=== PATIENT | male | born 1965 | race Caucasian/White ===

== ENCOUNTER 2023-03-13 15:13 | Inpatient (IN) | payer OTHER ==
[~2023-03-13] VITALS: Ht 175.3 cm; Wt 115.9 kg
[2023-03-13 16:51] VITALS: BP 167/73; PULSE 88; TEMP 97.8
[2023-03-13 16:59] VITALS: BP_SYST 167
--- NOTE | 2023-03-13 17:41 | NUR ---
RN ATTEMPTED BEDSIDE SWALLOW STUDY WITH PATIENT. PATIENT TOOK A SIP OF WATER, SWALLOW OBSERVED. PATIENT IMMEDIATLY STARTIN COUGHING. PATIENT WAS ABLE TO RECOVER SOMEWHAT QUICKLY. PATIENT DRANK WATER FROM A STRAW WITH NO ISSUES. PATIENT TOOK ONE BITE OF APPLESAUCE WITHOUT ISSUE. HOWEVER. PATIENT ATTEMPTED TO HOLD APPLESAUCE, THIS RN STATED SHE WOULD HOLD HIS APPLESAUCE SO H COULD USE HIS LFT HAND TO SCOOOP AND FEED HIMSELF (PATIENT THEN SAID " OH, I ONLY HAVE ONE ARM.) THEN DECLINED TO PROCEED.
--- NOTE | 2023-03-13 18:00 | NUR ---
CORAL TRANSFERED ROOMS. CORAL DOES NOT SEEM TO UNDERSTAND GRAVITY OF SITUATUION. FALL PRECAUTIONS IN PLACE. PATIENT HAS MULTIPLE FAMILY MEMBERS AT BEDSIDE.
[2023-03-13] MEDS ORDERED: LIPITOR 40MG TA40 MG PO (18:18)
[2023-03-13] MEDS ORDERED: CYMBALTA 60MG60 MG PO (19:22)
[2023-03-13] MEDS ORDERED: FLEXERIL 1010 MG/TAB PO (19:22)
[2023-03-13] MEDS ORDERED: NEURONTIN300 MG/CAP PO (19:23)
[2023-03-13] MEDS ORDERED: MOBIC15 MG PO (19:23)
[2023-03-13] MEDS ORDERED: ZESTRIL40 MG PO (19:23)
[2023-03-13] MEDS ORDERED: QSYMIA 7.5 MG-41 CER PO (19:24)
[2023-03-13] MEDS ORDERED: GLUCOPHAGE500 MG/TAB PO (19:24)
[2023-03-13] MEDS ORDERED: REMERON45 MG PO (19:24)
[2023-03-13] MEDS ORDERED: VIAGRA100 M1 PO (19:25)
[2023-03-13] MEDS ORDERED: MINIPRESS 1M1 MG/CAP PO (19:25)
[2023-03-13 20:00] VITALS: BP 164/92; PULSE 92; TEMP 98.3
[2023-03-13 21:00] VITALS: BP_SYST 164
--- NOTE | 2023-03-13 21:59 | NUR ---
UPON SHIFT ASSESSMENT, CARLOS SEEMED IN DENIAL ABOUT HIS CVA AND TALKED LITTLE OF HIS CONDITION. HE DENIED ANY PAIN, LUNG SOUNDS WERE CLEAR AND HE WAS A&O X 4. HE HAD +2 EDEMA IN HIS RIGHT FOOT AND A PILLOW WAS PLACED UNDERNEATH. LAST BP WAS 167/73 WHICH IS WITHIN RANGE OF DOCTOR'S ORDERS. CARLOS IS VOIDING USING A BEDSIDE URINAL. HE REMAINS NPO UNTIL AFTER SPEECH EVALUATION. BEDALARM IS ON AND CALL LIGHT WITHIN REACH.
[2023-03-14] VITALS (14 sets, daily range): BP systolic 103–177; BP diastolic 49–84; PULSE 72–89; TEMP 97.7–98.9
--- NOTE | 2023-03-14 | NUR ---
CARLOS c/o FEELING HOT AND SWEATY. VITALS AND ACCUCHECK WAS DONE AND WERE WNL. DEANDRE MCCLAIN, PLACED CALL TO HOSPITALIST FOR FAN AND ONE WAS PLACED BEDSIDE.
--- NOTE | 2023-03-14 00:50 | NUR ---
PATIENT'S BLOOD GLUCOSE REMAINS ABOVE 200 SINCE LAST DOSE OF SLIDING SCALE INSULIN GIVEN @ 2100. HOSPITALIST ELIZABETH LOWE NOTIFIED AND TORB FOR ADJUSTMENT TO SLIDING SCALE INSULIN WAS MADE. 6 UNITS NOVOLOG GIVEN @ 0100.
--- NOTE | 2023-03-14 05:53 | NUR ---
AT END OF SHIFT ASSESSMENT, CARLOS STILL SEEMED ANXIOUS AND WAS SLEEPING RESTLESSLY. HIS BP REMAINS IN DR. SHAH'S DESIRED RANGE AT 163/83. CURRENT STROKE SCORE IS 10 AND VITALS ARE WNL. HE STATED HE IS LOOKING FORWARD TO SPEECH EVAL; HE WANTS TO EAT AND DRINK. CALL LIGHT IS WITHIN REACH AND BED ALARM ON.
--- NOTE | 2023-03-14 06:26 | NUR ---
UP TO VISIT WITH PT AND GO OVER MRI SAFETY SHEET.
[2023-03-14 07:14] LABS: BASO # 0.1 K/mm3 (0.0-0.2); BASO % 0.7 % (0.0-2.0); EOS # 0.1 K/mm3 (0.0-0.7); GRAN # 7.2 K/mm3 (1.4-6.5); GRAN % 68.3 % (42.2-75.2); HEMOGLOBIN 17.3 g/dl (13.5-18.0); LYMPH # 2.4 K/mm3 (1.2-3.4); MEAN CELL VOLUME 89 fl (80.0-100.0); MEAN CORPUSCULAR HEMOGLOBIN 31 pg (27-31); MEAN CORPUSCULAR HGB CONC 35 g/dl (33.0-37.0); MEAN PLATELET VOLUME 10.2 fl (7.4-10.4); MONO # 0.7 K/mm3 (0.1-0.6); MONO % 6.2 % (1.7-9.3); PLATELET COUNT 218 K/mm3 (130-400); RED BLOOD COUNT 5.53 M/mm3 (4.20-5.60); REDCELL DISTRIBUTION WIDTH-CV 13.1 % (11.5-14.5)
[2023-03-14 07:29] LABS: CALCIUM 9.4 mg/dL (8.4-10.2); CHOLESTEROL RISK RATIO 7.3; POTASSIUM 3.9 mmol/L (3.5-4.5)
--- NOTE | 2023-03-14 10:42 | NUR ---
Patient is resting in bed watching television, alert and oriented, denies any discomfort or pain at this time. Assessment completed, SCDs adjusted. Stes no further needs at this time. Explained POC. Call light within reach. Bed alarm on.
[2023-03-14] MEDS ORDERED: ASPIRIN 81M81 MG/TA2 PO (14:20)
[2023-03-14] MEDS ORDERED: SYNJARDY XR 121 EACH PO (14:21)
[2023-03-14] MEDS ORDERED: SEROQUEL 1100 MG/TAB PO (14:22)
[2023-03-14] MEDS ORDERED: ZETIA 10MG TAB10 MG PO (14:22)
[2023-03-14] MEDS ORDERED: MELATIN 3 MG-11 TAB PO (14:23)
[2023-03-14] MEDS ORDERED: MULTI VITAMINS1 TAB PO (14:24)
[2023-03-14] MEDS ORDERED: GREEN TEA PO (14:25)
--- NOTE | 2023-03-14 15:27 | NUR ---
Claims Specialist met with patient to discuss discharge planning. Patient lives in [place] with his two children. Patient stated he has a 13 year old at home, then an adult son, Maged (ph#[phone]). Patient goes to the [facility] for primary care and medications. Patient does not normally use any DME and was independent with ADLS prior to his stroke. SW discussed PT/OT recommendations and advised the Hospitalist put in a screen for IPR. Patient is agreeable to this. SW discussed DPOA-HC with patient who is interested in making one, but requests SW follow up tomorrow. SW contacted patient's son, Maged to provide update. Maged confirmed he lives with patient and is agreeable to IPR screen. Discharge Plan: IPR Screen
--- NOTE | 2023-03-14 19:21 | NUR ---
Report given ti night RN.
--- NOTE | 2023-03-14 20:35 | NUR ---
UPON SHIFT ASSESSMENT, CARLOS DID NOT SEEM ANXIOUS LAST NIGHT'S SHIFT (03/13 @ 20:00). HE DISPLAYED SOME LIGHT HUMOR AND A BIT MORE KNOWLEDGE ABOUT HIS CURRENT SITUATION, "I'LL NEED PHYSICAL THERAPY". RIGHT SIDE REMAINS FLACID WITH NO CONTRACTURES, HOWEVER, THERE IS TOE WIGGLE IN HIS RIGHT FOOT. APPLIED ELIZABETH BANDAGE TO IV SITE TO PREVENT OCCLUSION. HE CURRENTLY HAS D5 1/2 NS @ 75mL/HR. BED ALARM ON AND CALL LIGHT WITHIN REACH.
--- NOTE | 2023-03-15 00:41 | NUR ---
CARLOS'S BLOOD PRESSURE AFTER REPEAT ATTEMPTS WAS 85/70. HOSPITALIST ELIZABETH LOWE VISITED PATIENT BEDSIDE IMMEDIATELY AND 250ML NS WAS ADMINISTERED BOLUS @ 500 ML/HR.
[2023-03-15 01:17] VITALS: BP_SYST 103
--- NOTE | 2023-03-15 01:19 | NUR ---
CARLOS IS EXPERIENCING MUSCLE SPASMS IN RT FOOT AND CANNOT SLEEP. HOSPITALIST ELIZABETH LOWE NOTIFIED AND GAVE TORB FOR TYLENOL, ROBAXIN AND MELATONIN.
--- NOTE | 2023-03-15 01:19 | NUR ---
PER CARLOS'S REQUEST REMOVED SCDs D/T FOOT SPASMS.
--- NOTE | 2023-03-15 01:30 | NUR ---
POOLTERI'S BP HAS IMPROVED TO 121/99 FOLLOWING BOLUS OF NS.
[2023-03-15 03:04] VITALS: BP 113/50; PULSE 89; TEMP 97.7
[2023-03-15 05:19] VITALS: BP_SYST 113
--- NOTE | 2023-03-15 06:08 | NUR ---
TOWARDS END OF SHIFT, CARLOS WAS ABLE TO SLEEP FOR BRIEF PERIODS. HE STILL DISPLAYS SOME ANXIETY. LAST VSS @ 03:04 WERE- BP 113/50, TEMP 97.7, 16 RR, PULSE 89. TELE IS NS.
[2023-03-15 06:38] VITALS: BP 107/68
[2023-03-15 07:49] VITALS: BP 130/70; PULSE 90; TEMP 98.3
[2023-03-15] MEDS ORDERED: PLAVIX 75MG TAB75 MG PO (08:50)
[2023-03-15] MEDS ORDERED: LIPITOR 80MG80 MG PO (08:50)
[2023-03-15] MEDS ORDERED: LEVEMIR100 U/ML SQ (08:53)
[2023-03-15] MEDS ORDERED: INSULIN AS100 UNIT/2 SQ (08:53)
--- NOTE | 2023-03-15 10:14 | NUR ---
Patient alert and oriented x4. Shift assessment complete, no new variances noted. Patient continues to be unable to rock picker right side extremities, reports slight feeling when touched. Patient reports numbness to right side. Skin is intact. Medications tolerated well. Patient reports low appetite and did not want his breakfast tray, supplement shake ordered. Patient feels overwhelmed regarding current health situation. Currently in bed with call light in reach, all needs met at this time.
[2023-03-15 10:53] VITALS: BP 120/68; PULSE 86; TEMP 98.2
--- NOTE | 2023-03-15 12:02 | NUR ---
Initial visit: Executive Vp stopped by room on rounds. Pt was resting and content. Pt has no needs right now. Executive Vp will follow up as needed.
--- NOTE | 2023-03-15 12:54 | NUR ---
Report called to JOHNY Wright in IPR. Patient voices no concerns at time of transfer.
--- NOTE | 2023-03-15 15:42 | NUR ---
Policy Issue Clerk was notified by IPR Director that they received authorization from the [facility] and can accept today. SW contacted patient's son, Maged to provide update. Maged said he and his sibling are doing okay at home and that he had no concerns or questions at this time.
== END 2023-03-15 12:45 | DRG 65 ==
LOC: MEDICAL 15:13
PROVIDERS: Physician Assistant; ADMIT Internal Medicine
DX: I63.9 Cerebral infarction, unspecified (principal); G81.91 Hemiplegia, unspecified affecting right dominant side; R47.81 Slurred speech; I10 Essential (primary) hypertension; E78.5 Hyperlipidemia, unspecified; Z79.4 Long term (current) use of insulin; N52.9 Male erectile dysfunction, unspecified; E66.9 Obesity, unspecified; F32.A Depression, unspecified; E11.40 Type 2 diabetes mellitus with diabetic neuropathy, unspecified; Z68.37 Body mass index [BMI] 37.0-37.9, adult
CPT/HCPCS: A9575; C9113; G0378; G0379; J1650; J1815; J7050; Q3014

== ENCOUNTER 2023-03-15 11:03 | Inpatient (IN) | payer OTHER ==
[~2023-03-15] VITALS: Ht 175.3 cm; Wt 103.6 kg
[~2023-03-15 11:03] MED LIST: ASPIRIN 81M81 MG/TA2 PO; CYMBALTA 60MG60 MG PO; FLEXERIL 1010 MG/TAB PO; GLUCOPHAGE500 MG/TAB PO; GREEN TEA PO; INSULIN AS100 UNIT/2 SQ; LEVEMIR100 U/ML SQ; LIPITOR 40MG TA40 MG PO; LIPITOR 80MG80 MG PO; MELATIN 3 MG-11 TAB PO; MINIPRESS 1M1 MG/CAP PO; MOBIC15 MG PO; MULTI VITAMINS1 TAB PO; NEURONTIN300 MG/CAP PO; PLAVIX 75MG TAB75 MG PO; QSYMIA 7.5 MG-41 CER PO; REMERON45 MG PO; SEROQUEL 1100 MG/TAB PO; SYNJARDY XR 121 EACH PO; VIAGRA100 M1 PO; ZESTRIL40 MG PO; ZETIA 10MG TAB10 MG PO
[2023-03-15 17:16] VITALS: BP 117/70; PULSE 84; TEMP 98
[2023-03-15 17:20] VITALS: BP_SYST 117
[2023-03-15 18:00] VITALS: BP 117/70; PULSE 84; TEMP 98
--- NOTE | 2023-03-15 18:13 | NUR ---
PATIENT BROUGHT TO FLOOR. PATIENT C/O DIARRHEA. PATIENT HAS HAD TWO LARGE, LOOSE STOOLS. THIS NURSE PLACED COLLECTION DEVICES IN BATHROOM TO OBTAIN GI PANEL WITH DR. CASTRO PERMISSION. ASSESSMENT PERFORMED. MEDS ADMINISTERED NEEDED. PATIENT DENIES ANY FURTHER NEEDS. CALL LIGHT IN REACH, BED ALARM ON.
--- NOTE | 2023-03-15 20:55 | NUR ---
Patient assessed at this time, see shift assessment, transfers x2 with gait belt to BSC, denies pain or discomfort, on room air, INT to left AC infusing well, denies further needs, call light and personal items within reach, fall precautions in place, bed alarm on.
--- NOTE | 2023-03-16 02:31 | NUR ---
Patient refused to wear CPAP provided by the RT, oxygen saturation 93%, will continue to monitor.
--- NOTE | 2023-03-16 04:51 | NUR ---
Patient resting in bed, looks comfortable, respirations even and unlabored.
[2023-03-16 05:53] VITALS: BP 106/54; PULSE 83; TEMP 97.4
--- NOTE | 2023-03-16 05:58 | NUR ---
Bladder scanned patient and resulted to 190ml.
[2023-03-16 08:51] LABS: CLOSTRIDIUM DIFF A/B POS
[2023-03-16 09:00] VITALS: BP_SYST 106
[2023-03-16 13:00] VITALS: BP_SYST 106
--- NOTE | 2023-03-16 13:45 | NUR ---
Regional Liaison rounds: Regional Liaison visit attempted. Patient was not in room.
[2023-03-16 17:00] VITALS: BP_SYST 136
[2023-03-16 17:21] VITALS: BP 136/67; PULSE 95; TEMP 98.7
--- NOTE | 2023-03-16 20:46 | NUR ---
Patient assessed at this time, see shift assessment, A/Ox4, denies pain at this time, denies further needs, call light and personal items within reach, will continue to monitor.
--- NOTE | 2023-03-17 01:15 | NUR ---
Patient still refused to wear CPAP provided by the RT, oxygen saturation is 92%.
[2023-03-17 05:25] VITALS: BP 106/59; PULSE 91; TEMP 98.4
[2023-03-17 09:00] VITALS: BP_SYST 106
--- NOTE | 2023-03-17 10:00 | NUR ---
Patient is lying in bed watching television, breakfast tray at 50%. Alert and oriented x 4, denies pain or discomfort at this time. Assessment completed, meds provided. No further needs at this time. Call light within reach.
--- NOTE | 2023-03-17 13:05 | NUR ---
SW met with pt. No concerns at this time since last visit with CM team. Will contiune to follow and await recommendations.
[2023-03-17 13:32] VITALS: BP_SYST 106
[2023-03-17 17:00] VITALS: BP_SYST 138
[2023-03-17 17:46] VITALS: BP 138/75; PULSE 92; TEMP 98.7
--- NOTE | 2023-03-17 18:33 | NUR ---
Patient stayed in bed and alternated with wheelchair in the day. No reports of pain or discomfort. Using the commode. Report will be given to night RN.
--- NOTE | 2023-03-17 20:30 | NUR ---
PT A&O X4 LAYING IN BED WATCHING TV. VSS & DENYING PAIN. FALL PRECAUTIONS IN PLACE & CALL LIGHT IN REACH. PT DENYING FURTHER NEEDS AT THIS TIME.
[2023-03-18 06:03] VITALS: BP 129/58; PULSE 80; TEMP 97.9
--- NOTE | 2023-03-18 06:29 | NUR ---
PT SLEPT IN BED THROUGHOUT THE SHIFT. NO C/O PAIN. FALL PRECAUTIONS IN PLACE & CALL LIGHT IN REACH. DENYING FURTHER NEEDS AT THIS TIME.
[2023-03-18 07:00] VITALS: BP_SYST 129
--- NOTE | 2023-03-18 09:42 | NUR ---
Initial visit attempt; Patient in isolation. Nurse took Personnel Recruiter's card to him offering Spiritual Care. Personnel Recruiter can offer prayer and/or just listen from the doorway and pray.
--- NOTE | 2023-03-18 10:24 | NUR ---
PT JUST WAKING I ENTERED ROOM FOR MED PASS AND ASSESSMENT.ALERT AND ORIENTED. WHEN ASKED HOW HE WAS FEELING, MILD DYSPHASIA NOTED.RESPONED HE WAS "FINE" FLAT AFFECT, PLAN TO CONSULT PASTORAL SERVICES. VITAL SIGNS STABLE. DENIES PAIN AT THIS TIME. CALL LIGHT WITHIN REACH. BED ALARM SET.
--- NOTE | 2023-03-18 16:50 | NUR ---
Web Coordinator met with Patient to discuss progress towards treatment goals and discuss discharge planning. Patient reports to be making progress towards treament goals though reports fatigue from therapies today. SW discussed the potential for a fmaily meeting this week. Patient states that his adult son is the best point of contact to schedule and coordinate family meeting.
[2023-03-18 17:36] VITALS: BP 141/76; PULSE 101; TEMP 98
--- NOTE | 2023-03-18 19:00 | NUR ---
RECEIVED CHANGE OF SHIFT REPORT FROM DAY SHIFT RN. RESTING IN BED, WATCHING TV. EXIT ALARM ON, CALL LIGHT IN REACH.
[2023-03-19 05:58] VITALS: BP 145/53; PULSE 87; TEMP 97.8
[2023-03-19 07:06] VITALS: BP_SYST 145
--- NOTE | 2023-03-19 07:07 | NUR ---
Shift report received from maintenance technician 2nd shift RN. Pt sleeping supine in bed. Resps are even & unlabored. No events reported overnight. Call light in reach. Bed alarm is on.
--- NOTE | 2023-03-19 07:57 | NUR ---
Pt sitting up in bed eating breakfast independently. Pain/discomfort denied. Other needs denied. Call light in reach. Bed alarm is on.
--- NOTE | 2023-03-19 10:34 | NUR ---
Pt is off the unit for Group Therapy.
--- NOTE | 2023-03-19 10:59 | NUR ---
Has lack of transportation kept you from medical appts, meetings, work, or from getting things needed for daily living? NO How often do you feel lonely or isolated from those around you? OFTEN Over the past 5 days, how much of the time has pain made it hard for you to sleep? NO PAIN Over the past 5 days, how often have you limited your participation in therapy due to pain? NO PAIN Over the past 5 days, how often have you limited your day-to-day activities because of pain? NO PAIN Have you had 2 or more falls in the past year or any fall with an injury? NO Did you have major surgery during the 100 days prior to admission? NO
--- NOTE | 2023-03-19 12:24 | NUR ---
Pt sitting up in the wheelchair eating lunch independently after set up help. Pt denies pain or discomfort. Denies any needs. Remains on contact iso. Call light in his reach. Chair alarm is on.
--- NOTE | 2023-03-19 13:03 | NUR ---
Admission QIM scores were reviewed by the team. Code of 5 chosen for eating was determined by team discussion to be the most usual performance before interventions for this patient during the assessment period.--Dolly De Souza, PD
--- NOTE | 2023-03-19 13:07 | NUR ---
Pt transferred to [facility] using 2 person assist at his request to have a BM. Pt unable to have a BM at this time. Pt declined wanting to lay down after toileting attempt. Pt transferred back to the wheelchair. ST in the room for therapy. Pt has his call light in reach.
[2023-03-19 17:29] VITALS: BP 114/55; PULSE 88; TEMP 97.7
--- NOTE | 2023-03-19 18:12 | NUR ---
Pt lying supine in bed watching tv. He ate approx 100% of his dinner independently after set up help. He denies pain/discomfort. Denies other needs. Call light in reach. Bed alarm is on.
--- NOTE | 2023-03-19 19:00 | NUR ---
RECEIVED CHANGE OF SHIFT REPORT FROM DAY SHIFT RN. PATIENT RESTING IN BED, WATCHING TV, EXIT ALARM ON, CALL LIGHT IN REACH. DENIES ANY NEEDS AT TIME OF REPORT.
[2023-03-20 05:44] VITALS: BP 96/46; PULSE 69; TEMP 97.6
--- NOTE | 2023-03-20 06:53 | NUR ---
CHANGE OF SHIFT REPORT GIVEN TO DAY SHIFT RNs, ALANIS. PATIENT SLEPT THROUGH THE NIGHT WITH NO REPORTED PROBLEMS. USED URINAL PRIOR TO SLEEP ONLY. DENIES ANY C/O OR NEEDS AT TIME OF REPORT THIS MORNING. DID OBSERVED PATIENT WITH APNEIC PERIOD WHEN VP DIRECTOR OF CREATIVE STRATEGY VITALS WERE TAKEN WITH NO REPORTED C/O SOA/CHEST PAIN OR ANY COMPLAINTS WITH MORNING. OBSERVED OXYGEN SAT ON ROOM AFTER APNEIC EPISODE INITIALLY AT 88% THAT INCREASED WITH NONLABORED/EVEN BREATHING TO 92% AND WITH NO FURTHER EPISODES OF APNEA OBSERVED THEREAFTER.
[2023-03-20 07:00] VITALS: BP_SYST 122
[2023-03-20 08:10] VITALS: BP 122/48
--- NOTE | 2023-03-20 09:01 | NUR ---
Shift report received from panel flow machine operator RN. No events reported overnight. Call light in reach. Bed alarm is on.
--- NOTE | 2023-03-20 09:27 | NUR ---
PT ALERT AND ORIENTED. RESTING IN BED W/O COMPLAINTS OF PAIN. VOIDS IN URINAL INDEPENDANTLY. ABLE TO EAT W/O ASSISTANCE. HEAD TO TOE ASSESSMENT COMPLETE. CALL LIGHT WITHIN REACH. BED ALARM SET. SPOKE TO DR YASMINE SWEETOUT POSSIBLE D/C OF CONTACT ISOLATION FOR CDIFF. PT HAS HAD TWO FROMED STOOLS IN THE LAST TWO DAYS.
--- NOTE | 2023-03-20 16:07 | NUR ---
Assembly Press Operator met with Patient at bedside to review team confreence notes. SW reviewed progress towards treatment goals, barriers and interventions, and discharge planning/re-eval date. Patient acknowledges and presents with no concerns.
[2023-03-20 17:11] VITALS: BP 119/56; PULSE 85; TEMP 98.2
[2023-03-21 05:07] VITALS: BP 95/51; PULSE 80; TEMP 97.6
[2023-03-21 07:00] VITALS: BP_SYST 95
--- NOTE | 2023-03-21 07:00 | NUR ---
PT SLEEPING IN BED. BEDALARM ACTIVE AND CALL LIGHT WITHIN REACH.
--- NOTE | 2023-03-21 07:21 | NUR ---
CHANGE OF SHIFT REPORT GIVEN TO DAY SHIFT DANI. JOHNY
--- NOTE | 2023-03-21 09:35 | NUR ---
PT DOWN TO THERAPY GYM
[2023-03-21 17:03] VITALS: BP 94/69; PULSE 85; TEMP 98.1
[2023-03-21 19:00] VITALS: BP_SYST 94
--- NOTE | 2023-03-21 19:16 | NUR ---
REPORT RECIEVED FROM SOFÍA MCCLAIN. PT RESTING IN BED WATCHING TV. PT DENIES PAIN OR DISCOMFORT. CALL LIGHT IN PLACE. ALL NEEDS MET AT THIS TIME.
--- NOTE | 2023-03-21 22:20 | NUR ---
SHIFT ASSESSMENT COMPLETE, SEE DOCUMENTATION. PT SITTING ON THE PHONE TALKING TO HER . NO C/O PAIN OR DISCOMFORT. CALL LIGHT IN PLACE. ALL NEEDS MET AT THIS TIME.
[2023-03-22 06:34] VITALS: BP 138/71; PULSE 88; TEMP 97.8
[2023-03-22 07:00] VITALS: BP_SYST 138
--- NOTE | 2023-03-22 07:30 | NUR ---
PATIENT AWAKE AND ALERT, RESTING IN BED. PATIENTS CALL LIGHT WIHTIN REACH. FALL PRECAUTIONS IN PLCAE. PATIENT REFUSING TO GET DRESSED AT THIS TIME.
--- NOTE | 2023-03-22 13:21 | NUR ---
Provided emotional support to pt throughout the week. His mood continues to flucuates d/t having adjustment issues to his stroke & deficits. Have allowed pt to talk about his experience. He has been able to verbalize some progress. Will continue to provide support during his stay.
--- NOTE | 2023-03-22 15:44 | NUR ---
Temperature Regulator Pyrometer and SW student met with Patient to review progress towards treatment goals and review potential discharge services. Patient reports to be making progress towards treatment goals despite feeling fatigue after therapies. SW reviewed potential Home Health PT or OPPT when discharged. Holland states that he may progress with Speech Therapy more if he were to work with Speech prior to working with PT/OT. Patient presents with no concerns at this time.
[2023-03-22 17:17] VITALS: BP 130/51; PULSE 97; TEMP 98
[2023-03-22 18:30] VITALS: BP_SYST 130
--- NOTE | 2023-03-22 19:49 | NUR ---
SHIFT ASSESSMENT COMPLETE. VVS. A&OX4. NIGHT MEDS GIVEN ORDERED. PATIENT RESTING IN BED WATCHING TV. PATIENT HAS NO REQUEST OR COMPLAINTS AT THIS TIME. FALL PRECAUTIONS IN PLACE. CALL LIGHT IN REACH.
[2023-03-23 06:31] VITALS: BP 94/49; PULSE 73; TEMP 97.7
[2023-03-23 07:03] VITALS: BP_SYST 94
--- NOTE | 2023-03-23 10:00 | NUR ---
PT ALERT AND ORIENTED. BLOOD PRESSURE OVERNIGHT WAS 94/49. UPON RECHEKING THIS AM WAS FOUND TO BE 119/51.ALL OTHER VITAL SIGNS WITHIN NORMAL LIMITS. MORNING MEDS GIVEN, SEE EMAR. HEAD TO TOE ASSESSMENT COMPLETE. CALL LIGHT WITHIN REACH. BED ALARM SET.
--- NOTE | 2023-03-23 11:50 | NUR ---
Yard Labor Supervisor rounds: Yard Labor Supervisor visit attempted; Patient sleeping.
[2023-03-23 17:28] VITALS: BP 100/54; PULSE 79; TEMP 97.9
--- NOTE | 2023-03-23 21:32 | NUR ---
Patient assessed at this time, see shift assessment, denies pain or discomfort, A/Ox4, on room air, takes pills fine, denies SOA, plan of care discussed for this shift to include meds/pain control/ calling for questions or concerns, will continue to monitor.
--- NOTE | 2023-03-24 00:42 | NUR ---
Patient awakened for scheduled vanco PO, denies pain or discomfort at this time.
[2023-03-24 06:06] VITALS: BP 95/57; PULSE 84; TEMP 97.6
[2023-03-24 06:11] VITALS: BP 102/49
--- NOTE | 2023-03-24 06:59 | NUR ---
TEXTILE MACHINE MECHANIC NURSE REPORTED PT REFUSED CPAP OVERNIGHT.WILL MONITOR O2 FOR SHIFT TODAY.
[2023-03-24 07:02] VITALS: BP_SYST 102
--- NOTE | 2023-03-24 12:00 | NUR ---
PT ALERT AND ORIENTED. SLEPT IN UNTIL 11AM TODAY. VITAL SIGNS STABLE. HEAD TO TOE ASSESSMENT COMPLETE. GOAL TO GET PT UP IN CHAIR FOR MEALS IF PT CAN TOLERATE. PT MOOD THE PAST TWO SHIFTS SINCE JOSE BEEN HERE HAS BEEN FLAT. I REMEMBER CARING FOR THIS PT LAST WEEK AND THIS MOOD IS DIFFERENT FROM BASELINE. WHEN I ASKED HIM HOW HE WAS FEELING HE SAYS "OK". PASTORAL SERVICES CONSULTED.
[2023-03-24 17:58] VITALS: BP 93/46; PULSE 86; TEMP 97.9
[2023-03-24 18:16] VITALS: BP 94/46
--- NOTE | 2023-03-24 19:00 | NUR ---
RECEIVED CHANGE OF SHIFT REPORT FROM DAY SHIFT RN.
[2023-03-24 21:05] VITALS: BP 100/48
[2023-03-25 05:17] VITALS: BP 100/60; PULSE 67; TEMP 97.7
--- NOTE | 2023-03-25 05:33 | NUR ---
DENIES DIZZINESS/FEELING WEAK AT THIS TIME. DENIES ANY NEEDS OR CONCERNS. EXIT ALARM ON WHILE RESTING IN BED. CALL LIGHT IN REACH.
--- NOTE | 2023-03-25 06:44 | NUR ---
CHANGE OF SHIFT REPORT GIVEN TO DAY SHIFT RNSUKUMAR.
[2023-03-25 07:00] VITALS: BP_SYST 100
--- NOTE | 2023-03-25 12:16 | NUR ---
Initial visit: Test Designer stopped by room by request. Pt was just getting done with rehab. Pt has no needs at this time. Test Designer will follow up as needed.
--- NOTE | 2023-03-25 16:57 | NUR ---
die try out worker briefly met with patient to check in. Patient expressed he was doing okay, he was tired. Patient felt PT and OT were going well but they were tiring. die try out worker updated patient's board with her direct phone number in case patient has questions during his stay. die try out worker expressed she would revisit with him on Saturday after the team meeting. Discharge plan: Home
[2023-03-25 17:55] VITALS: BP 120/75; PULSE 77; TEMP 97.7
--- NOTE | 2023-03-25 19:01 | NUR ---
RECEIVED CHANGE OF SHIFT REPORT FROM DAY SHIFT RN.
--- NOTE | 2023-03-25 23:26 | NUR ---
PATIENT COMPLAINING OF L SHOULDER PAIN AND BEING UNABLE TO FALL ASLEEP. SEE MAR FOR TYLENOL AND MELATONIN GIVEN WITH SCHEDULED VANCOMYCIN PILL. PLACED WARM BLANKET FOR COMFORT TO L SHOULDER AREA OF DISCOMFORT. EXIT ALARM ON, CALL LIGHT IN REACH.
[2023-03-26 05:27] VITALS: BP 86/46; PULSE 77; TEMP 97.9
--- NOTE | 2023-03-26 06:08 | NUR ---
OBSERVED BP AT 86/46 MANUALLY, INFORMED ONCALL HOSP PROVIDER OF CURRENT VS&BP. PROVIDER ENTERED ORDER FOR ONE TIME ORDER FOR 500 ML IV BOLUS OF NS AFTER INSERTING IV SITE FOR SALINE LOCK. PATIENT INFORMED OF D.O. AND TO INCREASE FLUID INTAKE, STATING HE WOULD DRINK GATORADE BETTER THAN WATER. OBSERVED PATIENT VERY SLEEPY STATING THAT HE WAS STILL VERY TIRED. DENIES CHEST PAIN/SOA/DIZZINESS AT THIS TIME. OBSERVED LIP COLORING PALE PINK, WITH RESPIRATIONS EVEN AND NONLABORED.
[2023-03-26 07:05] LABS: HEMATOCRIT 43.1 % (42.0-52.0); HEMOGLOBIN 14.9 g/dl (13.5-18.0); MEAN CELL VOLUME 91 fl (80.0-100.0); MEAN CORPUSCULAR HEMOGLOBIN 32 pg (27-31); MEAN CORPUSCULAR HGB CONC 35 g/dl (33.0-37.0); MEAN PLATELET VOLUME 10.2 fl (7.4-10.4); PLATELET COUNT 191 K/mm3 (130-400); RED BLOOD COUNT 4.73 M/mm3 (4.20-5.60); REDCELL DISTRIBUTION WIDTH-CV 12.5 % (11.5-14.5)
[2023-03-26 07:09] VITALS: BP 90/50
--- NOTE | 2023-03-26 07:12 | NUR ---
CHANGE OF SHIFT REPORT GIVEN TO DAY SHIFT JANEEN MCCLAIN.
[2023-03-26 07:33] VITALS: BP_SYST 90
[2023-03-26 07:33] LABS: CALCIUM 9.2 mg/dL (8.4-10.2); CREATININE, serum 4.18 mg/dL (0.72-1.25); POTASSIUM 5.1 mmol/L (3.5-4.5)
--- NOTE | 2023-03-26 07:50 | NUR ---
pt asleep upon entry, easily awaken. pt a&ox4 and vss- blood pressure 90/50 after 500ml bolus. pt reports feeling tired from not sleeping last night but otherwise asymptomatic. notified NAVEEN Anthony of blood pressure and holding lisinopril. meds given without difficulty. right side flaccid, able to assist self in eating breakfast. fall precautions in place. pt denies needs at this time. call light in reach.
--- NOTE | 2023-03-26 14:05 | NUR ---
recieved call from PCT that IPR director Kathleen is requesting vital signs to be taken on patient because he is "acting weird." manual BP 80/52 and O2 sat 89 on room air, other VS are stable. pt a&ox4. pt also reporting feeling short of breath and some chest discomfort. Dr Dia in to examine pt and EKG and CXR ordered. 500ml fluid bolus started. pt assisted back to bed to lay flat and help bring blood pressure up. pt placed on 1L nasal cannula.
[2023-03-26 17:29] VITALS: BP 90/64; PULSE 65; TEMP 97.9
--- NOTE | 2023-03-26 19:00 | NUR ---
RECEIVED CHANGE OF SHIFT REPORT FROM DAY SHIFT RN. PATIENT UP IN CHAIR AT TIME OF REPORT, EXIT ALARM ON, CALL LIGHT IN REACH. DENIES ANY NEEDS AT TIME OF REPORT.
[2023-03-26 22:06] VITALS: BP 118/64
[2023-03-27 05:46] VITALS: BP 98/48; PULSE 77; TEMP 97.4
--- NOTE | 2023-03-27 07:13 | NUR ---
CHANGE OF SHIFT REPORT GIVEN TO DAY SHIFT RNs, ALANIS.
--- NOTE | 2023-03-27 07:23 | NUR ---
NIGHT NURSE REPORTS THAT PT BG WAS WNL. ONGOING HYPOTENSION, HOLD ON LISINOPRIL WILL ASK ABOUT AMLODIPINE WHEN HOSPITALIST ROUNDS. #20 IN , CDI.PT SLEPT THROUGH THE NIGHT PER REPORT FROM COMMUNICATIONS OFFICER RN.
[2023-03-27 07:29] VITALS: BP_SYST 98
[2023-03-27 07:37] LABS: CALCIUM 8.6 mg/dL (8.4-10.2); CREATININE, serum 2.07 mg/dL (0.72-1.25); POTASSIUM 5.4 mmol/L (3.5-4.5)
--- NOTE | 2023-03-27 10:54 | NUR ---
PT ALERT AND ORIENTED. VITAL SIGNS STABLE THIS AM. FLUIDS RUNNING IN #20 LH, CLEAN, DRY, INTACT. NO C/O PAIN AT THIS TIME. REGULAR UNLABORED RESPIRATIONS THIS MORNING. HEAD T0 TOE ASSESSMENT COMPLETE.
--- NOTE | 2023-03-27 16:52 | NUR ---
pt blood sugar was 77 at last check. Gave saltines and orange juice. Will re check in 1 hour.
--- NOTE | 2023-03-27 16:55 | NUR ---
opinion polls survey worker met with IPR team to discuss patient's progress. Patient still required assistance and would benefit from continued IPR services. opinion polls survey worker met with patient to review IPR team meeting information. Patient understood he still needed to improve and understood he would continue with IPR services. opinion polls survey worker left a copy of the IPR notes for patient to review when he wanted. Social work will continue to follow.
[2023-03-27 17:39] VITALS: BP 140/60; PULSE 80; TEMP 97.7
[2023-03-27 19:00] VITALS: BP_SYST 132
[2023-03-27 20:00] VITALS: BP 116/64
[2023-03-27 23:07] VITALS: BP 132/78
--- NOTE | 2023-03-28 02:06 | NUR ---
UPON SHIFT ASSESSMENT CARLOS C/O RT FOOT SPASM AND THIS NURSE OBSERVED SPASM WELL. CALL WAS PLACED TO HOSPITALIST FARHANA FOR REQUIP WAS PLACED AND ADMINISTERED. INITIALLY CATAPRES WAS HELD D/T A 116 SYSTOLIC. A LATER BP CHECK SHOWED A TRENDING ELEVATED BP SO CATAPRES WAS GIVEN. CURRENTLY SARAH VSS ARE WNL, CALL LIGHT WITHIN REACH, BED ALARM ON.
[2023-03-28 05:44] VITALS: BP 145/60; PULSE 77; TEMP 97.7
--- NOTE | 2023-03-28 05:55 | NUR ---
CARLOS EXPERIENCED AN EPISODE OF FOOT SPASMS DURING THE NIGHT AND MEDICATION WAS GIVEN. THERE ARE NO STATUS CHANGES AND HE SLEPT MOST OF THE NIGHT. HIS VSS ARE WNL, CALL LIGHT WITHIN REACH AND BED ALARM ON.
[2023-03-28 07:36] LABS: CALCIUM 8.7 mg/dL (8.4-10.2); CREATININE, serum 1.36 mg/dL (0.72-1.25); POTASSIUM 4.5 mmol/L (3.5-4.5)
--- NOTE | 2023-03-28 09:16 | NUR ---
PER COOLING PAN TENDER REPORT PT SLEPT WELL OVERNIGHT WITH NO C/O PAIN.
[2023-03-28 09:17] VITALS: BP_SYST 145
--- NOTE | 2023-03-28 12:40 | NUR ---
UPON HELPING WITH TRANSFER FROM BSC I NOTICED HIS BOTTOM WAS REDDENED, BLANCHABLE. BARRIER CREAM APPLIED.
--- NOTE | 2023-03-28 15:31 | NUR ---
PT PERIFERAL IV LINE INFILTRATED. IV DISCONTINUED IN THE LH.
--- NOTE | 2023-03-28 16:19 | NUR ---
Pt sitting up in the recliner watching tv & visiting w/ his family. Blood sugar 65 mg/dL w/o sx of hypoglycemia. Snack & Ensure given. Hospitalist notified. Will continue to monitor.
[2023-03-28 18:00] VITALS: BP 130/70; PULSE 76; TEMP 97.8
[2023-03-28 18:45] VITALS: BP_SYST 130
--- NOTE | 2023-03-28 20:00 | NUR ---
PT ASSISTED TO BSC WITH 2 ASSIST/GAIT BELT. FLACCID TO RT SIDE. IS ALERT AND ORIENTED. HAS IVF TO LT HAND, INFUSING WITHOUT PROBLEM. VOIDS AND ASSISTED BACK TO BED. DENIES PAIN.
[2023-03-29 05:55] VITALS: BP 140/80
[2023-03-29 06:00] VITALS: PULSE 71; TEMP 97.5
--- NOTE | 2023-03-29 06:00 | NUR ---
PT VOIDS PER URINAL WITHOUT PROBLEM. IVF CONTINUE. B/P IMPROVED.
[2023-03-29 07:14] VITALS: BP_SYST 140
--- NOTE | 2023-03-29 14:50 | NUR ---
Gas Regulator Repairer Helper met with patient to check in before the weekend. Patient states therapy is going well but can be exhausting. Patient reports his children are doing okay at home and will be here this afternoon to visit him.
[2023-03-29 17:02] VITALS: BP 136/62; PULSE 67; TEMP 98
[2023-03-29 19:00] VITALS: BP_SYST 136
--- NOTE | 2023-03-29 21:30 | NUR ---
PT IN BED. HS MEDS GIVEN. PT HAS IVF TO LT HAND INFUSING WITHOUT PROBLEM. PT REMAINS FLACCID TO RT SIDE. HAS FLAT AFFECT AND GIVES SHORT ANSWERS TO QUESTIONS. VOIDING PER URINAL, EMPTIED 300CC OF YELLOW URINE AT THIS TIME. BED ALARM ON FOR SAFETY.
[2023-03-30 05:09] VITALS: BP 134/62; PULSE 69; TEMP 98.1
[2023-03-30 06:51] LABS: CALCIUM 9.2 mg/dL (8.4-10.2); CREATININE, serum 1.17 mg/dL (0.72-1.25)
[2023-03-30 08:15] VITALS: BP_SYST 134
--- NOTE | 2023-03-30 08:15 | NUR ---
PT AWAKE IN BED UPON ENTERING. FLUIDS RUNNING PER ORDER AND PT DENIES PAIN AT THIS TIME. MORNING MEDS SWALLOWED WITHOUT DIFFICULTY. RIGHT SIDED WEAKNESS NOTED AND PT DENIES NEEDS AT THIS TIME. BED IN LOWEST POSITION, CALL LIGHT IN REACH, BED ALARM ON
--- NOTE | 2023-03-30 12:13 | NUR ---
PT IN PHYSICAL THERAPY THIS AM AND NOW BACK IN ROOM AND UP IN CHAIR. FLUIDS RUNNING PER ORDER AND PT DENIES PAIN AT THIS TIME. BLOOD SUGAR 72 AND DOES NOT NEED INTERVENTIONS AT THIS TIME. PT AWARE AND DRINKING ORANGE JUICE. PT DENIES NEEDS. CHAIR ALARM ON AND CALL LIGHT IN REACH.
[2023-03-30 17:48] VITALS: BP 137/56; PULSE 75; TEMP 98.1
--- NOTE | 2023-03-30 18:38 | NUR ---
REPORT GIVEN TO NIGHT NURSE
--- NOTE | 2023-03-30 20:56 | NUR ---
Called Chuck the NAVEEN and relayed to him that patient's blood sugar is 94. Received an order to give 18 units of levimer instead of the 27 units.
--- NOTE | 2023-03-30 21:16 | NUR ---
Patient assessed at this time, see shift assessment, denies pain or discomfort at this time, right sided weakness still noted, voided and had smear BM, pericare provided, IV infusing well on left hand, NS at 60cc/hr, denies further needs, call light and personal items within reach, will continue to monitor.
--- NOTE | 2023-03-30 22:15 | NUR ---
Patient complained of leg cramps on his right leg, tylenol given and elevate it with pillows, refused warm blanket, will continue to monitor.
[2023-03-30 22:50] VITALS: BP 120/68
--- NOTE | 2023-03-30 22:50 | NUR ---
Applied warm pack to right leg and patient is agreeable with it, informed Chuck,the PA and made him aware that patient is having muscle spasm.cramps, tylenol PRN, scheduled gabapentin and baclofen were given but didn't help, received order for magnesium.
[2023-03-31 05:47] VITALS: BP 142/58; PULSE 70; TEMP 97.8
--- NOTE | 2023-03-31 06:28 | NUR ---
Patient reports his leg cramp is a lot better.
[2023-03-31 07:01] VITALS: BP_SYST 142
--- NOTE | 2023-03-31 07:04 | NUR ---
appears to be sleeping, IV infusing per pump at 60ml/hr, shift report received from JOHNY Morrow
--- NOTE | 2023-03-31 08:20 | NUR ---
has had breakfast and tolerated well, full assessment completed, see interventions for further info, will assess cocyx when PLATEN DRIER OPERATOR available to help him roll to his side
--- NOTE | 2023-03-31 09:30 | NUR ---
COOK ICE CREAM in and he was rolled to his right side, cocyx is light red and he was positioned onto his right side,
--- NOTE | 2023-03-31 11:00 | NUR ---
called and ready to get out of bed, assisted out of bed with MEDICAL SOCIAL WORKER and this nurse, appears very determined and sat self up on side of bed
--- NOTE | 2023-03-31 13:30 | NUR ---
remains up in chair and watching TV
--- NOTE | 2023-03-31 16:30 | NUR ---
remains in chair, will stay up for suppr adn then will go back to bed
[2023-03-31 17:43] VITALS: BP 141/78; PULSE 82; TEMP 98
--- NOTE | 2023-03-31 19:01 | NUR ---
shift report given to JOHNY Morrow
--- NOTE | 2023-03-31 21:03 | NUR ---
Patient up to the bathroom with 2 assist with walker & gaitbelt and he voided fine, went back to bed, denies pain or discomfort, denies SOA, lungs CTA, spoken to Flor, the PA regarding his blood sugar and received an order to give Levimer 20 units instead of 27 units, call light and personal items within reach, fall precautions in place.
--- NOTE | 2023-04-01 08:00 | NUR ---
PT RESTING IN BED WITH PAIN 0/10 AT THIS TIME. PT ATE ALL OF BREAKFAST AND USED URINAL AT BEDSIDE. NO OBVIOUS SIGNS OF WEAKNESS. WILL CONTINUE TO MONITOR.
--- NOTE | 2023-04-01 15:10 | NUR ---
end worker briefly met with patient to check in. Patient is doing well and feels he has made a lot of improvements on his strength and his depressions is more managed with his medication. Patient understands there is a family meeting scheduled for 10:15 AM on 04/03/23. No further concerns at this time.
[2023-04-01 18:00] VITALS: BP 125/74; PULSE 87; TEMP 97.4
--- NOTE | 2023-04-01 20:30 | NUR ---
PT A&O X4 SITTING UP IN RECLINER. VSS. DENYING ANY PAIN OR N/V. INT TO LEFT HAND PATENT. CALL LIGHT IN REACH & DENYING FURTHER NEEDS AT THIS TIME.
[2023-04-01 20:44] VITALS: BP_SYST 125
[2023-04-02 06:01] VITALS: BP 153/65; PULSE 75; TEMP 97.9
--- NOTE | 2023-04-02 08:00 | NUR ---
PT RESTING IN BED WITH NO PAIN AT THIS TIME. BUTTOCK REDDEND BUT BLANCHABLE. PT EDUCATED ON NEED TO REPOSITION FREQUENTLY. PT UP TO BATHROMM IWHT ASSIST X1 AND PLATFORM WALKER. GAIT UNSTEADY. OBVIOUS RIGHT SIDED WEAKNESS. WILL COTINUE TO MONITOR.
[2023-04-02 17:14] VITALS: BP 141/88; PULSE 91; TEMP 98.6
[2023-04-02 18:46] VITALS: BP_SYST 141
--- NOTE | 2023-04-02 20:30 | NUR ---
PT A&O SITTING UP IN RECLINER. DENYING ANY PAIN AT THIS TIME. INT TO LEFT HAND PATENT. FALL PRECAUTIONS IN PLACE & CALL LIGHT IN REACH. DENYING FURTHER NEEDS.
[2023-04-03 05:01] VITALS: BP 138/59; PULSE 68; TEMP 98.2
[2023-04-03 07:06] VITALS: BP_SYST 138
--- NOTE | 2023-04-03 07:07 | NUR ---
Shift report received from turn supervisor RN. No events reported over night. Pt sleeping supine in bed w/ even & unlabored resps. He aroused easily from sleeping. Wants to stay in bed for breakfast. Pt denies other needs. Call light in reach. Bed alarm in reach.
--- NOTE | 2023-04-03 12:24 | NUR ---
Pt sitting up in the recliner eating lunch independently. Pt denies pain/discomfort. Denies any needs at this time. Call light in reach. Chair alarm is on.
[2023-04-03 16:23] VITALS: BP 150/74; PULSE 74; TEMP 97.9
--- NOTE | 2023-04-03 17:02 | NUR ---
picking table worker met with IPR team to discuss patient progress and discharge planning. Patient is improving but team would like to reteam next week. picking table worker met with patient, patient's mother in law and IPR team for family meeting. Patient will need a shower chair and grab bars for when he returns home. picking table worker met with patient to provide a copy of the IPR team conference notes. Patient did not have any concerns at this time and his only worry is being discharged before he is physically ready to go so he wants to ensure the [facility] will [facility]. Dolly, IPR director, had previously expressed she was in contact with the [facility] for patient. Discharge Plan: Home
--- NOTE | 2023-04-03 17:31 | NUR ---
2 person assist provided to assist pt to stand to platform walker & ambulate to the bathroom. Pt had a continent void & BM. Pt back in his recliner to finish his dinner. Pain discomfort denied. Other needs denied. Call light in reach. Chair alarm is on.
[2023-04-03 19:33] VITALS: BP_SYST 150
--- NOTE | 2023-04-03 20:00 | NUR ---
PT A&O X4 SITTING UP IN RECLINER. DENYING ANY PAIN. INT TO LEFT HAND PATENT. FALL PRECAUTIONS IN PLACE & CALL LIGHT IN REACH. DENYING FURTHER NEEDS.
[2023-04-04 05:27] VITALS: BP 143/70; PULSE 73; TEMP 97.8
[2023-04-04 06:59] VITALS: BP_SYST 143
--- NOTE | 2023-04-04 06:59 | NUR ---
Shift report received from night RN. Pt sleeping supine in bed w/ even & unlabored resps. No events reported overnight. Call light in reach. Bed alarm is on.
--- NOTE | 2023-04-04 09:28 | NUR ---
Pt is off the unit for PT.
--- NOTE | 2023-04-04 10:46 | NUR ---
Pt is off the unit for Group Therapy.
--- NOTE | 2023-04-04 15:30 | NUR ---
Pt sitting up in the recliner after returning from gym w/ OT. Pain/discomfort denied. Other needs denied. Call light in reach. Chair alarm is on.
[2023-04-04 17:11] VITALS: BP 129/72; PULSE 74; TEMP 98.2
[2023-04-05 05:14] VITALS: BP 169/76; PULSE 80; TEMP 97.9
--- NOTE | 2023-04-05 05:30 | NUR ---
ASSESSMENT FOR FRANCHISE SALES REPRESENTATIVE COMPLETE. PT HAD A COUPLE OF ISSUES WITH HIS CBI RUNNING THIS SHIFT. THE FIRST TIME THERE WAS A SMALL CLOT BLOCKING THE FLOW. THE SECOND TIME, WE COULD NOT FIND A REASON IT HAD STOPPED FLOWING, HOWEVER, WE FLUSHED IT AND IT STARTED FLOWING AGAIN. PT COMPLAINED OF BLADDER SPASMS. LEVSIN GIVEN. PT FELT IT HELPED. PT DENIED CHEST PAIN, PALPITATIONS, SOB, N,V,D OR DIZZINESS. CALL LIGHT WITHIN REACH.
[2023-04-05 08:25] VITALS: BP_SYST 169
--- NOTE | 2023-04-05 10:47 | NUR ---
PT ALERT AND ORIENTED X4. VITAL SIGNS STABLE. HEAD TO TOE ASSESSMENT COMPLETE. NO C/O PAIN AT THIS TIME. MEDICATED PER EMAR. FALL PRECAUTIONS IN PLACE.
--- NOTE | 2023-04-05 16:31 | NUR ---
electroplating worker met with patient briefly to check in. Patient expressed he felt he was getting stronger with his right leg but no movement with his right arm yet. Patient expressed he has felt his mood has improved with his depression medications. No further concerns at this time.
[2023-04-05 17:35] VITALS: BP 133/63; PULSE 80; TEMP 97.9
[2023-04-05 17:52] VITALS: BP 134/58; PULSE 79; TEMP 97.9
--- NOTE | 2023-04-05 22:08 | NUR ---
Patient assessed at this time, see shift assessement, A/Ox4, denies pain or discomfort, INT to left hand infusing well, denies further needs, call light and personal items within reach, will continue to monitor.
[2023-04-06 05:12] VITALS: BP 150/68; PULSE 68; TEMP 97.6
--- NOTE | 2023-04-06 06:28 | NUR ---
Patient resting in bed, eyes closed, looks comfortable.
[2023-04-06 08:15] VITALS: BP_SYST 150
--- NOTE | 2023-04-06 08:15 | NUR ---
RECIEVED REPORT FROM RETAIL BUSINESS DEVELOPMENT MANAGER NURSE
--- NOTE | 2023-04-06 08:32 | NUR ---
PT ALERT AND ORIENTED. VITAL SIGNS STABLE. ABLE TO MOVE RIGHT LOWER AFFECTED EXTREMITY ADDUCTION AND ABDUCTION. NO C/O PAIN AT THIS TIME. HEAD TO TOE ASSESSMENT COMPLETE. MEDICATED PER EMAR. FALL PRECAUTIONS IN PLACE.
[2023-04-06 18:05] VITALS: BP 148/60; PULSE 72; TEMP 98.2
[2023-04-06 19:10] VITALS: BP_SYST 148
--- NOTE | 2023-04-06 22:33 | NUR ---
Patient assessed around this time, in good spirits, slowly progressing, A/Ox4, denies pain or discomfort, denies further needs at this time, call light and personal items within reach, will continue to monitor.
[2023-04-07 05:58] VITALS: BP 145/65; PULSE 73; TEMP 97.7
--- NOTE | 2023-04-07 06:48 | NUR ---
RECIEVED REPORT FROM RESTAURANT CREW NURSE.
[2023-04-07 06:49] VITALS: BP_SYST 145
--- NOTE | 2023-04-07 11:08 | NUR ---
PT ALERT AND ORIENTED. VITAL SIGNS STABLE. HEAD TO TOE ASSESSMENT COMPLETE. NO C/O PAIN AT THIS TIME. FALL PRECAUTIONS IN PLACE. WENT FOR A WALK IN WHEELCHAIR THIS MORNING AND IS IN A GREAT MOOD.
--- NOTE | 2023-04-07 11:49 | NUR ---
Nurse Private Duty rounds: Nurse Private Duty assisted Patient in locating the [facility] for [facility] so that he could watch/listen to his own evangelical service from his room.
[2023-04-07 17:50] VITALS: BP 140/66; PULSE 83; TEMP 97.3
--- NOTE | 2023-04-07 18:13 | NUR ---
PT REFFUSED TO WEAR VALERIY HOSE ON UNAFFECTED EXTREMITY. EDUCATED PT ABOUT THE RISK OF DVT.PT STILL REFUSED SAYS HE MAY PUT IT ON TOMORROW.
--- NOTE | 2023-04-07 19:48 | NUR ---
Patient sitting in a recliner, assessed around this time, denies pain or discomfort, noted redness to bottom, applied barrier cream, denies further needs at this time, call light and personal items within, will continue to monitor.
[2023-04-08 05:40] VITALS: BP 132/59; PULSE 71; TEMP 98.1
[2023-04-08 06:10] LABS: BASO % 0.6 % (0.0-2.0); EOS # 0.2 K/mm3 (0.0-0.7); EOS % 2.6 % (0.0-4.0); GRAN # 3.9 K/mm3 (1.4-6.5); HEMATOCRIT 43.6 % (42.0-52.0); HEMOGLOBIN 14.6 g/dl (13.5-18.0); LYMPH # 2.5 K/mm3 (1.2-3.4); LYMPH % 35.1 % (20.0-51.0); MEAN CELL VOLUME 92 fl (80.0-100.0); MEAN CORPUSCULAR HEMOGLOBIN 31 pg (27-31); MEAN CORPUSCULAR HGB CONC 34 g/dl (33.0-37.0); MEAN PLATELET VOLUME 9.5 fl (7.4-10.4); MONO # 0.5 K/mm3 (0.1-0.6); MONO % 6.4 % (1.7-9.3); PLATELET COUNT 193 K/mm3 (130-400); RED BLOOD COUNT 4.72 M/mm3 (4.20-5.60)
--- NOTE | 2023-04-08 06:10 | NUR ---
Patient resting in bed, looks comfortable.
[2023-04-08 06:38] LABS: CALCIUM 8.9 mg/dL (8.4-10.2); CREATININE, serum 1.13 mg/dL (0.72-1.25); POTASSIUM 3.9 mmol/L (3.5-4.5)
--- NOTE | 2023-04-08 07:15 | NUR ---
RECIEVED REPORT FROM INSIDE SALES ACCOUNT REPRESENTATIVE NURSE
[2023-04-08 07:16] VITALS: BP_SYST 132
--- NOTE | 2023-04-08 08:29 | NUR ---
PATIENT ALERT AND ORIENTED. VITAL SIGNS STABLE. HEAD TO TOE ASSESMENT COMPLETE. ASSISTED PT UP TO RESTROOM 1 PERSON ASSIST WITH PLATFORM WALKER. PT WAS ABLE TO STAND ON HIS OWN WITH GAIT BELT.STANDBY ASSIST TO RESTROOM. MEDICATED PER EMAR.FALL PRECAUTIONS IN PLACE.
--- NOTE | 2023-04-08 16:05 | NUR ---
Hardwood Flooring Specialist met with Patient at bedside to review progress towards goals and discuss discharge planning. Patient rreviewed his progress in his ability to move his right leg, stating it isn't much, but presents positive towards his progress. Patient states that he is fearful to go home and is hopeful that his insurance approves a longer stay in order for him to progress more towards independency.
[2023-04-08 16:15] VITALS: BP 133/69; PULSE 75; TEMP 98
[2023-04-08 19:00] VITALS: BP_SYST 133
--- NOTE | 2023-04-08 20:45 | NUR ---
Patient resting in chair. Assissted patient to bathroom and back to bed. Denies any pain at this time. Assessment complete. Denies any needs at this time. Call light and personal items in reach. Bed in low position
[2023-04-09 05:37] VITALS: BP 154/63; PULSE 76; TEMP 97.8
--- NOTE | 2023-04-09 06:00 | NUR ---
Patient resting in bed. Respirations even and unlabored. No signs of pain at this time. Call light and personal items in reach. Bed in low position
[2023-04-09 07:04] VITALS: BP_SYST 154
--- NOTE | 2023-04-09 07:05 | NUR ---
Shift report received from complaint evaluation supervisor RN. No events reported overnight. Pt sleeping supine in bed w/ even & unlabored resps. Call light in reach. Bed alarm is on.
--- NOTE | 2023-04-09 16:38 | NUR ---
Pt sitting up in the recliner watching tv. He has had no complaints of pain/discomfort throughout this shift. Pt participated in all therapy sessions today & feels that therapy is going well. Pt denies any needs at this time. Call light in reach. Chair alarm is on.
[2023-04-09 17:57] VITALS: BP 106/56; PULSE 78; TEMP 97.8
[2023-04-09 19:00] VITALS: BP_SYST 106
--- NOTE | 2023-04-09 21:22 | NUR ---
Patient resting in bed. Denies any pain or discomfort. Tolerates taking pills whole and with water well. Denies further needs at this time.
[2023-04-10 05:14] VITALS: BP 118/67; PULSE 74; TEMP 98.1
[2023-04-10 06:52] VITALS: BP_SYST 118
--- NOTE | 2023-04-10 06:53 | NUR ---
Shift report received from night RN. No events reported overnight. Pt sleeping supine in bed w/ even & unlabored resps. Call light in reach. Bed alarm is on.
--- NOTE | 2023-04-10 11:31 | NUR ---
Pt is off the unit w/ OT.
--- NOTE | 2023-04-10 12:59 | NUR ---
Pt up to ambulate off unit w/ PT.
--- NOTE | 2023-04-10 14:39 | NUR ---
Pt sitting up in the recliner watching tv. Pain/discomfort denied. Other needs denied. Call light in reach. Chair alarm is on.
[2023-04-10 16:13] VITALS: BP 141/65; PULSE 77; TEMP 98.3
--- NOTE | 2023-04-10 16:59 | NUR ---
Cleaning Manager met with Patient and family at bedside to review team conference notes. SW collaborated with Patient to review progress towards treatment goals when admitted to current eval. SW reviewed PT/OT/ST treatment goals and celebrated the sucess of multiple goals having been met. Patient is assessed to need re-eval next saturday.
--- NOTE | 2023-04-10 19:00 | NUR ---
RECEIVED CHANGE OF SHIFT REPORT FROM DAY SHIFT RN. UP IN CHAIR, EXIT ALARM ON, CALL LIGHT IN REACH. DENIES ANY NEEDS OR CONCERNS AT TIME OF REPORT.
--- NOTE | 2023-04-11 05:00 | NUR ---
PATIENT SLEPT THROUGH NIGHT, BREATHING NONLABORED AND EVEN WHEN OBSERVED BY NURSING ON ROUNDS. EXIT ALARM ON DURING NIGHT/SLEEP WITH CALL LIGHT IN REACH.
[2023-04-11 05:40] VITALS: BP 121/62; PULSE 85; TEMP 97.8
[2023-04-11 07:00] VITALS: BP_SYST 121
--- NOTE | 2023-04-11 07:06 | NUR ---
CHANGE OF SHIFT REPORT GIVEN TO DAY SHIFT RNARTHUR.
--- NOTE | 2023-04-11 09:07 | NUR ---
RECIEVED REPORT FROM REQUIREMENTS ENGINEER NURSE
--- NOTE | 2023-04-11 11:05 | NUR ---
PT ALERT AND ORIENTED. VITAL SIGNS STABLE. NO C/O PAIN AT THIS TIME. HEAD TO TOE ASSESSMENT COMPLETE. MEDICATED PER EMAR. FALL PRECAUTIONS IN PLACE.
[2023-04-11 17:38] VITALS: BP 120/53; PULSE 91; TEMP 98.2
[2023-04-12 05:57] VITALS: BP 136/62; PULSE 75; TEMP 97.7
[2023-04-12 07:00] VITALS: BP_SYST 136
--- NOTE | 2023-04-12 09:06 | NUR ---
PATIENT ALERT AND ORIENTED X4. VSS. PATIENT HERE FOR CVA, RIGHT SIDED WEAKNESS. PATIENT DENIES ANY PAIN AT THIS TIME. ASSESSMENT PERFORMED. AM MEDS ADMINISTERED. THERAPY IN THE ROOM TO START THE DAY. BED ALARM ON. CALL LIGHT IN REACH. NO FURTHER NEEDS AT THIS TIME.
--- NOTE | 2023-04-12 12:58 | NUR ---
Bilingual Call Center Representative met with Patient at bedside to review progress towards treatment goals. Patient reflects on his progress with his right arm and leg, summarizing that he has made some progress and "some progress is better than none" Patient states to be motivated to continue progress with his ability to use is right redd leg and hopes to remain in rehab for further treatment. Patient states that his endurance has increased, having improved from fatiguing in the AM to later in the day after 2nd round of PT. Patient's only concern is that he can continue therapy with insurance accepting extention of treatment.
[2023-04-12 16:35] VITALS: BP 140/66; PULSE 70; TEMP 98.3
[2023-04-12 18:41] VITALS: BP_SYST 140
--- NOTE | 2023-04-12 21:00 | NUR ---
PT SITTING UP IN RECLINER. DENIES NEEDS AT THIS TIME. CALL LIGHT IN REACH. CHAIR ALARM SET.
--- NOTE | 2023-04-13 05:19 | NUR ---
PT HAS SLEPT THROUGH THE NIGHT. NO DISTRESS. CALL LIGHT IN REACH. BED ALARM SET.
[2023-04-13 05:50] VITALS: BP 152/63; PULSE 79; TEMP 97.6
[2023-04-13 06:40] VITALS: BP_SYST 152
--- NOTE | 2023-04-13 09:23 | NUR ---
Pt sitting up in the recliner after eating breakfast independently. He denies pain/discomfort. Denies other needs. Call light in his reach. Chair alarm is on.
--- NOTE | 2023-04-13 10:19 | NUR ---
Pt is off the unit for Group Therapy.
--- NOTE | 2023-04-13 11:52 | NUR ---
Pt back in his room after Group Therapy. Pt self-propeling w/c around the unit stating "I don't want to stay in my room". Pt denies pain/discomfort. Denies other needs. Call light in reach. Chair alarm is on.
--- NOTE | 2023-04-13 14:14 | NUR ---
PM Supervisor Cleaning And Annealing rounds: Patient was seated in recliner watching football. Patient spoke with Supervisor Cleaning And Annealing about his stroke and his . Life review. Patient's episcopal is very involved and providing support in several ways. Supervisor Cleaning And Annealing prayed for Patient and gave thanks for the blessing of a good episcopal family.
--- NOTE | 2023-04-13 14:46 | NUR ---
Pt feeling constipated. Trace amt of blood noted on cleansing wipe after toileting. Miralax given at pt's request.
--- NOTE | 2023-04-13 15:38 | NUR ---
Pt sitting up in the recliner watching tv. Pain/discomfort denied. Other needs denied. Call light in reach. Chair alarm is on.
--- NOTE | 2023-04-13 16:18 | NUR ---
Pt able to have a hard, medium, formed BM but reports it was difficult to pass. Pt would like to take Miralax daily. Discussed w/ Hospitalist. See EMAR for changes.
[2023-04-13 17:11] VITALS: BP 152/71; PULSE 87; TEMP 97.9
--- NOTE | 2023-04-13 17:42 | NUR ---
Pt sitting up in the recliner eating dinner independently & visiting w/ his mother & daughter. Colace given approx 1 hr ago to further soften stools. Pain/discomfort denied. Other needs denied. Call light in reach. Chair alarm is on.
[2023-04-13 18:38] VITALS: BP_SYST 152
--- NOTE | 2023-04-13 21:00 | NUR ---
PT SITTING UP IN RECLINER. ASSISTED TO BR WITH QUAD CANE. RT SIDE HEMIPARESIS. SEE SHIFT ASSESSMENT. ASSISTED TO BED. ABLE TO LIFT LEG INTO BED. RT LEG BRACE AND SHOES OFF BY PT. CALL LIGHT IN REACH. BED ALARM SET.
[2023-04-14 05:19] VITALS: BP 137/56; PULSE 72; TEMP 98.1
[2023-04-14 06:45] VITALS: BP_SYST 137
--- NOTE | 2023-04-14 06:46 | NUR ---
Shift report received from warehouse shift supervisor RN. No events reported overnight. Pt sleeping supine in bed w/ even & unlabored resps. Call light in reach. Bed alarm is on.
--- NOTE | 2023-04-14 08:44 | NUR ---
Pt sleeping supine in bed w/ even & unlabored resps. Pt ate 100% of his breakfast independently. Call light in reach. Bed alarm is on.
--- NOTE | 2023-04-14 10:23 | NUR ---
Pt assisted from wheelchair to recliner at his request. BLE elevated on footrest. Pt has his call light in reach. Chair alarm is on. Other needs denied at this time.
--- NOTE | 2023-04-14 12:29 | NUR ---
Pt ate 100% of lunch independently. Pt sitting up in the recliner visiting w/ his mother & daughter. Pain denied. Other needs denied. Call light in reach. Chair alarm is on.
[2023-04-14 17:22] VITALS: BP 135/68; PULSE 87; TEMP 97.7
--- NOTE | 2023-04-14 17:36 | NUR ---
Pt up in recliner. He ate 100% of dinner independently. Denies pain or discomfort. Other needs denied. Call light in reach. Chair alarm is on.
[2023-04-15 04:37] VITALS: BP 126/63; PULSE 78; TEMP 97.9
--- NOTE | 2023-04-15 05:58 | NUR ---
vss, afebrile, ambulating to restroom with 1 assist using walker/gait belt. rec'd SSI @ HS, no c/o pain or discomfort.
[2023-04-15 07:12] VITALS: BP_SYST 126
--- NOTE | 2023-04-15 07:13 | NUR ---
RECIEVED REPORT FROM AMUSEMENT OR RECREATION CARD CHECKER NURSE
--- NOTE | 2023-04-15 10:28 | NUR ---
Engineering Faculty met with patient to check in and review progress towards goals. Patient advised things are going well and he is working hard with therapy to work towards goals. Patient advised his children are doing okay at home and come visit him almost daily. Patient advised his daughter is in 9th grade and goes to [employer]. SW advised patient that she will be available as needed during the week but will plan to follow up on Saturday after team meeting.
--- NOTE | 2023-04-15 11:28 | NUR ---
PT ALERT AND ORIENTED. VITAL SIGNS STABLE. MEDICATED PER EMAR. HEAD TO TOE ASSESSMENT COMPLETE. NO C/O PAIN AT THIS TIME. PT IS ABLE TO RAISE HIS RIGHT SHOULDER AND MOVE HIS RIGHT LEG UP, HE IS MAKING IMPROVEMENTS IN STRENGTH.
[2023-04-15 17:29] VITALS: BP 114/50; PULSE 84; TEMP 98
--- NOTE | 2023-04-15 19:03 | NUR ---
RECEIVED CHANGE OF SHIFT REPORT FROM DAY SHIFT RN.
[2023-04-16 05:37] VITALS: BP 137/63; PULSE 76; TEMP 97.4
[2023-04-16 06:55] VITALS: BP_SYST 137
--- NOTE | 2023-04-16 06:55 | NUR ---
RECIEVED REPORT FROM NIGHT NURSE.
--- NOTE | 2023-04-16 07:00 | NUR ---
CHANGE OF SHIFT REPORT GIVEN TO DAY SHIFT RNARTHUR. PATIENT SLEPT THROUGH THE NIGHT WITH NO C/O OR NEEDS REPORTED. RESTED IN BED WITH EXIT ALARM ON AND CALL LIGHT IN REACH.
--- NOTE | 2023-04-16 09:55 | NUR ---
PT ALERT AND ORIENTED. VITAL SIGNS STABLE. HEAD TO TOE ASSESSMENT COMPLETE. PT REPORTS HAVING FEELING IN HIS AFFECTED RIGHT EXTREMITIES. NO C/O PIAN AT THIS TIME. FALL PRECAUTIONS IN PLACE.
[2023-04-16 18:04] VITALS: BP 137/61; PULSE 88; TEMP 97.7
--- NOTE | 2023-04-16 18:41 | NUR ---
RECEIVED CHANGE OF SHIFT REPORT FROM DAY SHIFT RN.
--- NOTE | 2023-04-17 01:31 | NUR ---
RESTING IN BED WITH EYES CLOSED, BREATHING EVEN AND NONLABORED. EXIT ALARM ON WITH CALL LIGHT IN REACH.
[2023-04-17 05:56] VITALS: BP 139/55; PULSE 77; TEMP 97.8
[2023-04-17 07:00] VITALS: BP_SYST 139
--- NOTE | 2023-04-17 07:10 | NUR ---
CHANGE OF SHIFT REPORT GIVEN TO DAY SHIFT RNARTHUR.
--- NOTE | 2023-04-17 09:17 | NUR ---
RECIEVED REPORT FROM MANAGER REIMBURSEMENT NURSE
--- NOTE | 2023-04-17 14:32 | NUR ---
PT ALERT AND ORIENTED. VITAL SIGNS STABLE. HEAD TO TOE ASSESSMENT COMPLETE. NO C/O PAIN AT THIS TIME. MAKING GREAT IMPROVEMENTS WITH MOBILITY WORKING WITH THERAPIES. MEDICATED PER EMAR. FALL PRECAUTIONS IN PLACE. CALL LIGHT WITHIN REACH.
--- NOTE | 2023-04-17 15:30 | NUR ---
Press Operator Carbon Products met with patient to provide a copy of team conference notes. SW and patient discussed use of the william walker and that patient prefers this to the other walker. Patient thinks having both a wheelchair and william walker at home at time of discharge would be ideal. Patient advised he is working on transportation arrangements for his daughter who is in 9th grade. There is no bus available to go from [place] to [place] at this time.
[2023-04-17 17:21] VITALS: BP 130/66; PULSE 80; TEMP 98.2
--- NOTE | 2023-04-17 18:58 | NUR ---
RECEIVED CHANGE OF SHIFT REPORT FROM DAY SHIFT RN.
[2023-04-17 22:46] VITALS: BP 170/74; PULSE 95; TEMP 97.9
--- NOTE | 2023-04-17 23:15 | NUR ---
PATIENT FELL FORWARD WHEN AMBULATING W/PCT (HEMIWALKER TO L HAND USE)/GAIT BELT ON) TO BATHROOM. DENIED WEAKNESS TO BLE WITH WALKING. PER PCT REPORT PATIENT REFUSED TO WEAR FOOTWEAR (SHOES OR HOSPITAL SOCKS). VS TAKE, SEE [facility], INFORMED ONCALL HOSP PROVIDER OF FALL. PATIENT DENIES PAIN TO EXTREMITIES, ABD, HEAD/FACE WITH PERRLA, SPEECH IS APPROPRIATE.
[2023-04-18 05:27] VITALS: BP 137/61; PULSE 77; TEMP 98
--- NOTE | 2023-04-18 07:06 | NUR ---
CHANGE OF SHIFT REPORT GIVEN TO DAY SHIFT RNPAULY.
[2023-04-18 07:11] VITALS: BP_SYST 137
--- NOTE | 2023-04-18 07:15 | NUR ---
Shift report received from manufacturing shift supervisor RN. Pt fell overnight with facial impact on wheel of wheelchair. No obvious signs of injury post-fall. CT-H WNL. Pt sleeping supine in bed w/ even & unlabored resps. Call light in his reach. Bed alarm is on.
--- NOTE | 2023-04-18 09:09 | NUR ---
Pt is off the unit w/ OT.
--- NOTE | 2023-04-18 11:38 | NUR ---
Pt sitting up in the recliner after returning from PT. Pt denies pain or discomfort. Denies other needs. Call light in his reach. Chair alarm is on.
--- NOTE | 2023-04-18 17:04 | NUR ---
Pt sitting up in the recliner eating dinner independently. Mom & daughter are in the room to visit. Pt denies pain/discomfort. Denies any other needs. Call light in reach. Chair alarm on.
[2023-04-18 17:41] VITALS: BP 105/90; PULSE 95; TEMP 98.2
[2023-04-18 18:38] VITALS: BP_SYST 105
--- NOTE | 2023-04-18 20:00 | NUR ---
PT SITTING IN CHAIR. ASSISTED TO BED WITH QUAD CANE. HAS BRACE TO RT LEG. PT HAVING VERY MILD DISCOMFORT TO RT NECK. DENIES NEED FOR TYLENOL. NO BRUISING. RT SIDED HEMAPARESIS. POSITIVE SENSATION. PT ABLE TO REMOVE SHOES, SOCKS, AND RT FOOT AFO. PT ABLE TO LIFT LEGS INTO BED. CALL LIGHT IN REACH. BED ALARM SET. ACCUCHECK 125.
[2023-04-19 04:37] VITALS: BP 157/68; PULSE 78; TEMP 97.5
--- NOTE | 2023-04-19 06:40 | NUR ---
Shift report received from material handler 2nd shift RN. No events reported overnight. Pt sleeping supine in bed w/ even & unlabored resps. Call light in reach. Bed alarm is on.
[2023-04-19 07:17] VITALS: BP_SYST 157
--- NOTE | 2023-04-19 07:43 | NUR ---
Pt ate 100% of breakfast independently. Pt sitting up on EOB using AD to put socks & shoes on. Pt stating will need help w/ the rt. shoe. Pain/discomfort denied. Call light in reach. Bed alarm on. Pt assisted to recliner at his request.
--- NOTE | 2023-04-19 11:00 | NUR ---
Pt sitting up in the wheelchair after returning from PT. Pt denies pain/discomfort. Denies other needs. Call light in reach.
--- NOTE | 2023-04-19 14:49 | NUR ---
Forestry Fire Aid met with patient to check in before the weekend. Patient stated therapy went well today and that it definately was better than yesterday. Patient advised he just got over tired yesterday and didn't sleep well the night before. Patient is feeling more rested today. SW discussed scheduling a home assessment and patient is agreeable to this. SW contacted patient's mother in law, Fariha (ph#[phone]) and scheduled her to worm picker patient at 09Saturday morning.
--- NOTE | 2023-04-19 16:48 | NUR ---
Pt up to ambulate to the bathroom w/ quad cane & 1 person assistance. Pt completed bathroom hygiene & clothing mgmt independently. Pt to recliner after toileting. Pain/discomfort denied. Call light in reach. Chair alarm is on.
[2023-04-19 18:02] VITALS: BP 132/71; PULSE 108; TEMP 98.4
--- NOTE | 2023-04-19 20:46 | NUR ---
Patient sitting up in his recliner watching TV, A/Ox4, denies pain at this time, denies SOA, all needs met, denies further needs, call light and personal items within reach, will continue to monitor.
[2023-04-20 05:27] VITALS: BP 152/57; PULSE 73; TEMP 97.7
--- NOTE | 2023-04-20 06:56 | NUR ---
Bedside report from JOHNY Castillo received. Pt is currently sleeping in bed. Fall precautions in place and call light within reach.
[2023-04-20 08:20] VITALS: BP_SYST 152
--- NOTE | 2023-04-20 12:27 | NUR ---
Clerical Adjudicator rounds: Patient stated that the GA has authorized more time for him. He wants to be more stable with his walker and with his right arm before going home. There is a home visit Saturday. Clerical Adjudicator prayed for Patient and his healing.
[2023-04-20 16:08] VITALS: BP 129/59; PULSE 81; TEMP 97.6
--- NOTE | 2023-04-20 18:01 | NUR ---
Pt had uneventful day this shift. Pt has been in pleasant mood with no complaints. Pt participated in group therapy. Pt ambulated to the bathroom four times this shift x1 assist. and daughter visited patient. Shift assessment completed. VSS. Fall precautions in place and call light within reach.
[2023-04-20 19:23] VITALS: BP_SYST 129
--- NOTE | 2023-04-20 20:52 | NUR ---
Patient in good spirits, watching football game on TV, denies pain or discomfort at this time, voided without any difficulty and this nurse assisted him back to bed, denies further needs, call light and personal items within reach, fall precautions in place.
[2023-04-21 04:48] VITALS: BP 150/67; PULSE 73; TEMP 97.6
[2023-04-21 06:59] VITALS: BP_SYST 150
[2023-04-21 08:36] VITALS: BP 132/65
--- NOTE | 2023-04-21 09:49 | NUR ---
SHIFT ASSESSMENT COMPLETE. PATIENT UP BRUSHING TEETH AND PREPARING FOR THE DAY. MORNING MEDS GIVEN PER ORDER.PATIENT HAS NO COMPLAINTS OR REQUEST AT THIS TIME. CALL LIGHT IN REACH
[2023-04-21 17:38] VITALS: BP 133/61; PULSE 77; TEMP 97.9
--- NOTE | 2023-04-21 19:00 | NUR ---
RECEIVED CHANGE OF SHIFT REPORT FROM DAY SHIFT NURSE.
--- NOTE | 2023-04-22 02:37 | NUR ---
PATIENT RESTING WITH EYES CLOSED, BREATHING EVEN AND NONLABORED. EXIT ALARM ON WITH CALL LIGHT IN REACH.
[2023-04-22 06:00] VITALS: BP 151/58; PULSE 71; TEMP 97.8
[2023-04-22 06:38] VITALS: BP_SYST 151
--- NOTE | 2023-04-22 06:39 | NUR ---
Shift report received from night order selector RN. No events reported overnight. Pt sleeping supine in bed w/ even & unlabored resps. Call light in reach. Bed alarm is on.
--- NOTE | 2023-04-22 06:45 | NUR ---
CHANGE OF SHIFT REPORT GIVEN TO DAY SHIFT RNPAULY.
--- NOTE | 2023-04-22 07:34 | NUR ---
Pt sitting up in bed. Breakfast refused. Pt agreeable to drinking orange juice for now. Encouraged pt to notify nurse if he'd like another breakfast tray ordered. Pt looking forward to home visit this morning. Pain/discomfort denied. Call light in reach. Bed alarm is on.
--- NOTE | 2023-04-22 08:09 | NUR ---
Pt sitting up on EOB to perform upper & lower body dressing using AD. Pt has his call light in reach. Bed alarm on.
--- NOTE | 2023-04-22 08:43 | NUR ---
Pt up in wheelchair. LUE sling is on. Morning hygiene completed. Pt denies any other needs at this time. Call light in reach.
--- NOTE | 2023-04-22 09:07 | NUR ---
Pt is off the unit for Home Eval.
--- NOTE | 2023-04-22 10:32 | NUR ---
Pt back in room after home eval. ST at the bedside for therapy.
--- NOTE | 2023-04-22 11:27 | NUR ---
Pt is off the unit w/ PT.
--- NOTE | 2023-04-22 14:21 | NUR ---
Pt reporting a hard stool & is requesting an additional dose of Miralax. Dr. Shafer notified. See EMAR for changes.
--- NOTE | 2023-04-22 14:27 | NUR ---
farmworker met with patient to check in. Patient had a home assessment this morning and he expressed it went well but there are some medical equipment he still needs to purchase such as shower chair, william walker, wheelchair, toilet riser, a pole that touches the ceiling by his couch and he is going to check if his landlord will install grab bars. Patient expressed he feels he is doing much better. No further concerns at this time.
[2023-04-22 16:46] VITALS: BP 164/70; PULSE 81; TEMP 97.7
--- NOTE | 2023-04-22 16:47 | NUR ---
Pt sitting up in recliner reporting L shoulder pain. Pt reports that while he was at Home Visit as he was pushing from the couch to stand he heard a loud pop from his L shoulder. Pt reports feeling pain mid upper arm when he raises his arm. No muscle tenderness w/ palpation or visible bulges. Pt agreeable to trying Tylenol for the muscle pain. Will continue to monitor.
[2023-04-22 19:00] VITALS: BP_SYST 164
--- NOTE | 2023-04-22 19:27 | NUR ---
REPORT RECIEVED FROM MALDONADO MCCLAIN. PT RESTING IN RECLINER WATCHING TV. PT DENIES PAIN. CALL LIGHT IN PLACE. ALL NEEDS MET AT THIS TIME.
--- NOTE | 2023-04-22 22:18 | NUR ---
SHIFT ASSESSMENT COMPLETE, SEE DOCUMENTATION. PT DENIES PAIN OR DISCOMFORT. CALL LIGHT IN PLACE. ALL NEEDS MET AT THIS TIME.
--- NOTE | 2023-04-22 23:14 | NUR ---
PRN TYLENOL WAS GIVEN FOR LEFT SHOULDER DISCOMFORT. PT FEELS HE STRAINED A MUSCLE. TYLENOL RELIEVED PT PAIN. CALL LIGHT IN PLACE. ALL NEEDS MET AT THIS TIME.
[2023-04-23 05:14] VITALS: BP 150/73; PULSE 79; TEMP 97.7
[2023-04-23 06:55] VITALS: BP_SYST 150
--- NOTE | 2023-04-23 06:55 | NUR ---
Shift report received from warehouse worker 2nd shift RN. Pt w/ continued left shoulder pain throughout the night. PRN Tylenol given early this morning by night RN. Pt currently sleeping supine in bed w/ even & unlabored resps. Call light in reach. Bed alarm is on.
--- NOTE | 2023-04-23 07:34 | NUR ---
Pt sitting up in bed to eat breakfast. Pt reporting L shoulder pain at 10/08 & states "it hurts". Too soon for next dose of Tylenol. Will continue to monitor.
--- NOTE | 2023-04-23 08:27 | NUR ---
Tylenol given for L shoulder pain per PRN order.
--- NOTE | 2023-04-23 08:31 | NUR ---
Pt is off the unit w/ PT.
--- NOTE | 2023-04-23 09:23 | NUR ---
Ice pack placed to L shoulder by PT. Pt sitting up in recliner in his room watching TV. Other needs denied at this time. Call light in reach. Chair alarm is on.
--- NOTE | 2023-04-23 11:43 | NUR ---
Pt is back in his room after Group Therapy. Pt reporting L shoulder pain at 10/08. Too early for next Tylenol dose. Blood sugar 77 mg/dL. Pt asymptomatic of hypoglycemia. [place] juice given.
--- NOTE | 2023-04-23 16:48 | NUR ---
Blood sugar 73 mg/dL. Mom & daughter at the bedside. Pt eating Vanessa's brought in by his family. Pt is asymptomatic of hypoglycemia. Dr. Shafer aware.
[2023-04-23 17:31] VITALS: BP 147/60; PULSE 85; TEMP 97.8
--- NOTE | 2023-04-23 18:07 | NUR ---
Pt sitting up in the recliner watching tv. Pt reporting mild L shoulder pain but denies the need for pain medication at this time. Pt ate 100% of his dinner independently. Other needs denied. Call light in his reach. Chair alarm is on.
[2023-04-23 19:00] VITALS: BP_SYST 147
--- NOTE | 2023-04-23 19:28 | NUR ---
REPORT RECIEVED FROM MALDONADO MCCLAIN. PT SITTING IN RECLINER IN ROOM. PT REPORTS TYLENOL HAS RELIEVED HIS LEFT SHOULDER PAIN AND THE ROM EXERCISES PERFORMED BY THE DOCTOR ON THE PREVIOUS SHIFT HAS REALLY HELP. CALL LIGHT IN PLACE. ALL NEEDS MET AT THIS TIME.
--- NOTE | 2023-04-23 22:45 | NUR ---
SHIFT ASSESSMENT COMPLETE, SEE DOCUMENTATION. PT CONTINUES COMPLAINING OF LEFT SHOULDER PAIN. PRN TYLENOL ADMINISTERED AT 2104 AND PROVIDED RELIEF. NO OTHER CONCERNS. CALL LIGHT IN PLACE. ALL NEEDS MET AT THIS TIME.
[2023-04-24 05:49] VITALS: BP 139/85; PULSE 82; TEMP 97.8
[2023-04-24 07:00] VITALS: BP_SYST 139
--- NOTE | 2023-04-24 16:29 | NUR ---
SW met with IPR team to discuss patient's progress and discharge planning. IPR team scheduled a discharge date for 05/03/23 with home health. SW met with patient to discuss IPR team meeting notes. Patient was concerned about going home and was hoping to stay a bit longer. Patient had questions about medical equipment, geriatric social work professor expressed she would be able to assist with ordering the wheelchair and william walker. SW provided the list of the other items he would need to purchase. Discharge Plan: Home with Home Health
[2023-04-24 17:28] VITALS: BP 141/68; PULSE 96; TEMP 98.2
[2023-04-24 20:19] VITALS: BP 142/63; PULSE 93; TEMP 98.3
[2023-04-24 20:20] VITALS: BP_SYST 142
[2023-04-25 05:15] VITALS: BP 154/67; PULSE 80; TEMP 98
--- NOTE | 2023-04-25 05:20 | NUR ---
ASSESSMENT COMPLETE FOR SENIOR SOLUTIONS ARCHITECT. PT COMPLAINED OF SHOULDER PAIN THIS MORNING. PT GIVEN TYLENOL FOR PAIN. WILL CONTINUE TO MONITOR FOR EFFECTIVENESS. PT DENIED CHEST PAIN, PALPITATIONS, SOB, N,V,D OR DIZZINESS. PT EXPRESSED NO ADDITIONAL NEEDS AT THIS TIME. FALL PRECAUTIONS IN PLACE. CALL LIGHT WITHIN REACH.
[2023-04-25 06:59] VITALS: BP_SYST 154
--- NOTE | 2023-04-25 08:04 | NUR ---
pt a&ox4 resting in bed watching tv. meds given and assessment complete. blood sugar 106 this morning, not requiring SSI. pt rates pain a 3/10 in his left shoulder, lidocaine patch applied. vss. pt denies needs at this time. fall precautions in place. call light in reach.
[2023-04-25 16:05] VITALS: BP 144/66; PULSE 86; TEMP 98.7
[2023-04-25 19:15] VITALS: BP 130/61; PULSE 95; TEMP 98.4
--- NOTE | 2023-04-25 19:44 | NUR ---
NOTE: TWO DIFFERENT GLUCOSE MONITORS GAVE THE SAME ERROR MESSAGE WHEN SCANNING PT'S ARMBAND (BOTH THE ONE ON HIS ARM AND A NEW PRINTED ONE). OVERRIDE DONE TO OBTAIN PT'S BLOOD GLUCOSE. PT'S BS WAS 157.
[2023-04-26 05:53] VITALS: BP 145/58; PULSE 74; TEMP 97.8
[2023-04-26 07:00] VITALS: BP_SYST 145
--- NOTE | 2023-04-26 07:28 | NUR ---
RECIEVED REPORT FROM GROCERY MANAGER NURSE.
--- NOTE | 2023-04-26 09:48 | NUR ---
PT ALERT AND ORIENTED. VITAL SIGNS STABLE. HEAD TO TOE ASSESSMENT COMPLETE. NO C/O PAIN AT THIS TIME. MEDICATED PER EMAR. FALL PRECAUTONS IN PLACE.
--- NOTE | 2023-04-26 13:56 | NUR ---
court worker briefly met with patient to check in. Patient expressed he was doing well and was still dealing with his hurt shoulder. Patient expressed he just needs a wheelchair, william walker, shower chair, toilet riser, and a pole by the couch to stablize himself with standing. Patient reports his landlord is going to put in grab bars in the shower for him and the cost will be added to his rent which patient was okay with as he did not want to install them himself. SW received signature for DME medical form to send to home medical. Since [facility] has [facility], [facility] needs completed and sent to the [facility].
[2023-04-26 16:33] VITALS: BP 143/75; PULSE 80; TEMP 98.1
[2023-04-26 18:30] VITALS: BP_SYST 143
--- NOTE | 2023-04-26 19:48 | NUR ---
SHIFT ASSESSMENT COMPLETE. VSS. PATIENT UP IN CHAIR WATCHING TV. ALL NIGHT MEDS GIVEN ORDERED. PATIENT HAS NO REQUEST AT THIS TIME. CALL LIGHT IN REACH.
[2023-04-27 05:44] VITALS: BP 126/66; PULSE 73; TEMP 97.6
--- NOTE | 2023-04-27 07:00 | NUR ---
RECIEVED REPORT FROM SOLDER TECHNICIAN NURSE.
[2023-04-27 07:29] VITALS: BP_SYST 126
[2023-04-27 17:56] VITALS: BP 104/67; PULSE 98; TEMP 98.5
[2023-04-27 20:50] VITALS: BP 126/59
[2023-04-28 05:30] VITALS: BP 129/61; PULSE 77; TEMP 97.8
[2023-04-28 07:06] VITALS: BP_SYST 129
--- NOTE | 2023-04-28 07:06 | NUR ---
RECIEVED REPORT FROM JUNIOR SOFTWARE ENGINEER NURSE.
--- NOTE | 2023-04-28 09:30 | NUR ---
Pt alert and oriented this am X4. Pt stated he had a restful night, and that he likes to sleep in on Saturday'. Vital signs stable. Head to toe assessment complete. Medicated per emar. Denies pain, dizziness, and shortness of breath at this time. Eats breakfast independantly and is stby assist with gait belt and william walker. Pt has right-sided weakness/paralysis r/t CVA. He is in good spirits about being discharged home. Call light within reach. Has chair alarm on wheelchair and recliner. Pt is watching TV at this time, bed alarm set.
[2023-04-28 17:46] VITALS: BP 126/59; PULSE 80; TEMP 97.9
[2023-04-29 05:06] VITALS: BP 131/63; PULSE 79; TEMP 98
[2023-04-29 06:48] VITALS: BP_SYST 131
--- NOTE | 2023-04-29 07:47 | NUR ---
Pt sitting up on EOB to eat breakfast independently. Pt reporting continued L shoulder pain - Tylenol given per PRN order. Pt looking forward to potential DC to home at the end of the week but reports feeling nervous. Other needs denied. Call light in reach. Bed alarm is on.
--- NOTE | 2023-04-29 08:09 | NUR ---
CGA provided as pt stood from bed to pivot transfer to wheelchair. Pt seated at the sink to shave & brush is teeth. Call light in reach. Chair alarm is on.
--- NOTE | 2023-04-29 13:00 | NUR ---
Pt is off unit w/ PT.
--- NOTE | 2023-04-29 16:00 | NUR ---
NAYE met with patient. Patient is going to order shower chair and safety frames. [facility] regarding [facility] and [facility]. NAYE will need to send RFS form to [facility]. NAYE provided form to doctor to sign off on for DME and home health request for services for the [facility]. NAYE will continue to follow.
--- NOTE | 2023-04-29 17:12 | NUR ---
Pt sitting up in the wheelchair eating dinner independently. Pt reporting mild L shoulder pain but denies the need for pain medication at this time. Other needs denied. Call light in his reach.
--- NOTE | 2023-04-29 17:46 | NUR ---
CGA provided as pt stood from wheelchair & pivot transferred to recliner using quad cane. Other needs denied. Call light in reach. Chair alarm is on.
[2023-04-29 17:53] VITALS: BP 142/63; PULSE 86; TEMP 97.9
[2023-04-29 19:00] VITALS: BP_SYST 142
--- NOTE | 2023-04-29 20:00 | NUR ---
PATIENT IS A&O AND IN BED FOR THE EVENING ALREADY. VSS. NO COMPLAINTS. NOTED RIGHT SIDE WEAKNESS POST CVA. 1 ASSIST WITH QUAD CANE. EVENING BS WAS 140, NO SSI REQUIRED. HS MEDS GIVEN. HEAD TO TOE ASSESSMENT COMPLETE. NO OTHER NEEDS. CALL LIGHT IN REACH.
[2023-04-30 05:04] VITALS: BP 130/57; PULSE 79; TEMP 97.8
[2023-04-30 07:03] VITALS: BP_SYST 130
--- NOTE | 2023-04-30 07:03 | NUR ---
RECIEVED REPORT FROM OFFICE MACHINE SERVICER APPRENTICE NURSE.
--- NOTE | 2023-04-30 11:20 | NUR ---
PATIENT ALERT AND ORIENTED X4. NO C/O PAIN AT THIS TIME. EVEN UNLABORED RESPR. VITAL SIGNS STABLE. HE IS LOOKING FORWARD TO GOING HOME TO BE WITH HIS DOGS AND IN HIS OWN BED.SHIFT ASSESSMENT COMPLETE,SEE DOCUMENTATION. PT IS GETTING STRONGER AND IS ABLE TO TRANSFER WITH PLATFORM CANE WELL. HE IS PROUD OF HIS PROGRESS AND IT SHOWS. HE IS MORE TALKATIVE AND OPEN ABOUT HIS FAMILY AND SOME HARDSHIPS HES FACED THE LAST FEW YEARS.
--- NOTE | 2023-04-30 14:13 | NUR ---
powder worker tnt faxed and email RFS form and clinical packet for skilled home health and DME to the [facility]. SW will continue to follow.
[2023-04-30 16:45] VITALS: BP 111/57; PULSE 88; TEMP 98.2
[2023-04-30 19:00] VITALS: BP_SYST 111
--- NOTE | 2023-04-30 19:14 | NUR ---
REPORT RECIEVED FROM ARTHUR MCCLAIN. PT DENIES PAIN AT THIS TIME. PT SITTING IN RECLINER WATCHING TV. CHAIR ALARM ON. CALL LIGHT IN REACH. ALL NEEDS MET AT THIS TIME.
--- NOTE | 2023-04-30 21:24 | NUR ---
SHIFT ASSESSMENT COMPLETE, SEE DOCUMENTATION. PT DENIES PAIN AND STATES LIDOCAINE PATCH SEEMS TO BE HELPING WITH LEFT SHOULDER PAIN. TOLERATED HS MEDS WELL. DID GREAT WITH INJECTING HIS OWN INSULIN. CALL LIGHT IN PLACE. ALL NEEDS MET AT THIS TIME.
[2023-05-01 06:00] VITALS: BP 133/63; PULSE 78; TEMP 97.8
[2023-05-01 07:00] VITALS: BP_SYST 133
--- NOTE | 2023-05-01 07:00 | NUR ---
PT RESTING IN BED WATCHING TV. PT IS ON RA. PT IS AXOX3. PT HAS CALL LIGHT AND INSTRUCTED TO CALL WITH ALL NEEDS. BEDALARM ACTIVE AND FALL PRECATUIONS IN PLACE.
--- NOTE | 2023-05-01 10:39 | NUR ---
Has lack of transportation kept you from medical appts, meetings, work, or from getting things needed for daily living? NO How often do you feel lonely or isolated from those around you? SOMETIMES Over the past 5 days, how much of the time has pain made it hard for you to sleep? RARELY/NOT AT ALL Over the past 5 days, how often have you limited your participation in therapy due to pain? RARELY/NOT AT ALL Over the past 5 days, how often have you limited your day-to-day activities because of pain? RARELY/NOT AT ALL
--- NOTE | 2023-05-01 14:59 | NUR ---
frog or oyster farmworker faxed two RFS forms to the [facility] as they require one for home health and one for DME. [facility] confirmed they received the referral and are processing it. NAYE mentioned patient is scheduled to discharge on Saturday and wants to ensure his wheelchair and william walker will be delivered on time. NAYE met with the IPR team to discuss patient's progress and discharge planning. Patient is scheduled to discharge on Saturday05/03/23 pending medical equipment. NAYE met with the patient to discuss discharge planning and the IPR team meeting. Patient reports he was ready to go home and feels he is prepared. SW provided information on obtaining a life alert as it is recommended he have one when he goes home. Patient did not have any concerns or questions at this time. Discharge Plan: Home with Home Health through [facility]
[2023-05-01 16:27] VITALS: BP 127/60; PULSE 89; TEMP 97.9
[2023-05-01 19:00] VITALS: BP_SYST 127
--- NOTE | 2023-05-01 20:45 | NUR ---
PT SITTING IN CHAIR. RT SIDE FLACCID. PT ABLE TO TRANSFER TO BED WITH SBA / QUAD CANE. PT ABLE TO REMOVE HIS SHOES AND SOCKS/ AFO. PT ABLE TO LIFT LEGS UP INTO BED. DENIES PAIN. ACCUCHECK 198. STAFF PULS UP INSULIN INTO SYRINGE. PT ABLE TO GIVE IT TO HIMSELF CORRECTLY. CALL LIGHT IN REQACH. BED ALARM SET.
[2023-05-02 05:47] VITALS: BP 142/65; PULSE 76; TEMP 97.5
[2023-05-02 07:18] VITALS: BP_SYST 142
--- NOTE | 2023-05-02 07:18 | NUR ---
RECIEVED REPORT FROM CURBSTONE SETTER NURSE, PT IS DOING WELL LOOKING FORWARD TO DISCHARGE TOMORROW.
--- NOTE | 2023-05-02 09:27 | NUR ---
PT ALERT AND ORIENTED X4. VITAL SIGNS STABLE. SHIFT ASSESMENT COMPLETE, SEE DOCUMENTATION. MEDICATED PER EMAR. PT CONTINUES TO DO WELL WITH INSULIN ADMINISTRATION. HAS BEEN EDUCATED ABOUT DIET AND LIFESTYLE CHANGES TO BETTER MANAGE BLOOD SUGARS. PT DENIES ANY PAIN AT THIS TIME. EVEN UNLABORED RESPR. CALL LIGHT WITHIN REACH,BED ALARM AND CHAIR ALARM SET.
[2023-05-02 16:11] VITALS: BP 135/60; PULSE 77; TEMP 98.2
--- NOTE | 2023-05-02 17:03 | NUR ---
drag out worker was notified patient's wheelchair will be delivered tomorrow to the hospital. Patient's william walker would need to be ordered by the [facility] and delivered to his house. NAYE spoke with the IPR director and patient will be able to borrow the william walker at the hospital until his arrives. NAYE was notified patient will need diabetic supplies at discharge. NAYE contacted the [facility] social services specialist, [facility], whom expressed he would need another RFS form completed for these supplies. NAYE was notified patient's home health RFS request was declined due to not enough information. NAYE will resubmit with the discharge orders for home health PT/OT/ST and nursing. NAYE met with patient to provide the above updates. Patient expressed he was okay with potentially paying out of pocket depending on the cost if the VA is unable to deliver diabetic supplies tomorrow prior to discharge. Patient expressed he has a follow up with the [facility] on 05/07/23. [facility] NAYE contacted [facility] to determine cost of supplies. [facility] expressed they would be able to gather patient's supplies for him but the cost of his insulin he is currently on would be around $1000. Pharmacy also expressed there are lower cost fast acting insulin around $120 but they recommended contacting [facility]. NYAE contacted [facility] and they provided an estimate of $110.93 flex pens for 3 of them. They expressed for a vial of insulin it would be $369. NAYE will follow up with patient and medical team in the morning. Discharge Plan: Home with Home Health through [facility]
[2023-05-02 18:30] VITALS: BP_SYST 135
--- NOTE | 2023-05-02 21:00 | NUR ---
PT SITTING IN CHAIR. READY TO AMB TO BR. USES QUAD CANE. SL UNSTEADY. RT SIDE HEMIPARESIS. VOIDING W/O DIFFICULTY. RELATED HAD HARD SMALL STOOL. GAVE COLACE. ACCUCHECK 114. ENC HS SNACK AND GAVE RATIONAL. PT REFUSED. PT ABLE TO GIVE SELF LEV[place]EIR INSULIN CORRECTLY. DENIES PAIN. CALL LIGHT IN REACH. BED ALARM SET.
[2023-05-03 05:20] VITALS: BP 123/70; PULSE 76; TEMP 97.3
--- NOTE | 2023-05-03 08:25 | NUR ---
Patient alert and oriented x4 this morning. Shift assessment complete, no new variances noted. Patient voices no concerns other than dishcarge planning. Patient administered own insulin with no complications, demonstrated proper technique. Transferred x1 assist with quad cane and gaitbelt to wheelchair with minimal difficulty. New lidocaine patch placed on left bicep. Patient currently wheeling self around room in wheelchair, chair alarm in place. All needs met at this time.
[2023-05-03] MEDS ORDERED: PLAVIX 75MG TAB75 MG PO (09:52)
[2023-05-03] MEDS ORDERED: LIPITOR 80MG80 MG PO (09:53)
[2023-05-03] MEDS ORDERED: MINIPRESS 1M1 MG/CAP PO (09:53)
[2023-05-03] MEDS ORDERED: ZETIA 10MG TAB10 MG PO (09:53)
[2023-05-03] MEDS ORDERED: CYMBALTA 60MG60 MG PO (09:54)
[2023-05-03] MEDS ORDERED: REMERON45 MG PO (09:54)
[2023-05-03] MEDS ORDERED: ASPIRIN 81M81 MG/TA2 PO (09:54)
[2023-05-03] MEDS ORDERED: ZESTRIL 10MG10 MG PO (09:54)
[2023-05-03] MEDS ORDERED: JARDIANCE10 PO (09:56)
[2023-05-03] MEDS ORDERED: LANTUS SOLOS100 U/ML SQ (09:56)
[2023-05-03] MEDS ORDERED: Lioresal PO (10:00)
[2023-05-03] MEDS ORDERED: FREESTYLE PREC1 EAC5 MC (10:00)
[2023-05-03] MEDS ORDERED: LANCETS MC (10:00)
[2023-05-03] MEDS ORDERED: INSULIN PEN NE1 EAC1 MC (10:00)
--- NOTE | 2023-05-03 12:45 | NUR ---
Discharge QIM scores were reviewed by the team. Code of 6 chosen for toileting hygiene was determined by team discussion to be the most usual performance for this patient during the discharge assessment period. Code of 6 chosen for toilet transfers was determined by team discussion to be the most usual performance for this patient during the discharge assessment period. Code of 6 chosen for sit to stand was determined by team discussion to be the most usual performance for this patient during the discharge assessment period. Code of 6 chosen for chair to bed was determined by team discussion to be the most usual performance for this patient during the discharge assessment period. Code of 6 chosen for walking 10 feet was determined by team discussion to be the most usual performance for this patient during the discharge assessment period. Code of 6 chosen for walking 50 feet w/ 2 turns was determined by team discussion to be the most usual performance before interventions for this patient during the discharge assessment period. Code of 4 chosen for walk 10 feet on uneven surface was determined by team discussion to be the most usual performance for this patient during the discharge assessment period.--Dolly De Souza, PD
--- NOTE | 2023-05-03 13:21 | NUR ---
Patient performed own accucheck around 1130. Patient demonstrated proper technique with no difficulty. Discharge paperwork discussed including follow-up appointments, new/changed/stopped medications, and patient education packets regarding medications/insulin/stroke exercises, etc. Patient verbalized understanding. Home health still in process of being established by NAYE. NAYE working with [facility] worker as well to ensure home health is provided. Patient aware. Patient currently waiting for ride in order to be picked up. No IV access and no telemetry present to discontinue.
--- NOTE | 2023-05-03 14:24 | NUR ---
lease out worker met with patient to discuss cost of out of pocket diabetes supplies. Patient is okay with paying out of pocket if the VA does not cover them today. Patient is okay with having the prescription filled at [facility]. NAYE provided the cost of these. Dr. Shafer expressed patient's levels were doing well and if he did not receive his insulin today he should be okay but it is unknown when the VA would be able to deliver. NAYE faxed RFS forms (Home Health and diabetic supplies) , clinical information, discharge paperwork and prescription to [facility]. NAYE notified NAYE Palma at the [facility], regarding patient's prescription and the RFS forms. NAYE faxed discharge paperwork and clinical information to [facility]. NAYE [facility]ed [facility] to the [facility]. NAYE was notified by patient that his wheelchair should hopefully be delivered between 12-2 pm. NAYE provided prescription information to patient so if he has questions when picking up he can speak with the pharmacist at [facility]. NAYE re-faxed the prescription to [facility] as they did not receive it the first time. NAYE was notified the [facility] received the RFS forms and it is submitted for review. Discharge Plan: Home with Home Health
--- NOTE | 2023-05-03 15:38 | NUR ---
Patient escorted out of building by son and staff via wheelchair. Belongings and discharge paperwork with patient.
== END 2023-05-03 15:40 | disposition home health service (06) | DRG 57 ==
PROVIDERS: Internal Medicine; Physician Assistant; ADMIT Physical Medicine & Rehabilitation Sports Medicine
DX: I69.351 Hemiplegia and hemiparesis following cerebral infarction affecting right dominant side (principal); A04.72 Enterocolitis due to Clostridium difficile, not specified as recurrent; A04.0 Enteropathogenic Escherichia coli infection; N17.9 Acute kidney failure, unspecified; I69.322 Dysarthria following cerebral infarction; I69.391 Dysphagia following cerebral infarction; E11.42 Type 2 diabetes mellitus with diabetic polyneuropathy; R13.10 Dysphagia, unspecified; I10 Essential (primary) hypertension; E78.5 Hyperlipidemia, unspecified; E66.9 Obesity, unspecified; G89.29 Other chronic pain; F43.10 Post-traumatic stress disorder, unspecified; F32.A Depression, unspecified; M25.512 Pain in left shoulder; E86.0 Dehydration; I95.89 Other hypotension; E87.5 Hyperkalemia; W18.30XA Fall on same level, unspecified, initial encounter; Y92.230 Patient room in hospital as the place of occurrence of the external cause; Z68.37 Body mass index [BMI] 37.0-37.9, adult; Z79.899 Other long term (current) drug therapy; Z79.4 Long term (current) use of insulin; Z79.82 Long term (current) use of aspirin
CPT/HCPCS: A9270; J1650; J1815; J3475; J7030; J7040; L1930; Q3014

== ENCOUNTER → 2023-08-06 | Outpatient (CLI) | payer OTHER ==
[~2023-08-06] MED LIST changes: +FREESTYLE PREC1 EAC5 MC; +INSULIN PEN NE1 EAC1 MC; +JARDIANCE10 PO; +LANCETS MC; +LANTUS SOLOS100 U/ML SQ; +Lioresal PO; +ZESTRIL 10MG10 MG PO
== END ==
LOC: MHCPAIN 10:22
DX: I63.9 Cerebral infarction, unspecified (principal); I69.351 Hemiplegia and hemiparesis following cerebral infarction affecting right dominant side; R25.2 Cramp and spasm
CPT/HCPCS: G0463

== ENCOUNTER 2024-03-24 14:33 | Outpatient (RCR) | payer OTHER | END 2024-03-30 | disposition home or self-care (01) | LOC: MKS.ESL.PT | DX: M62.81 Muscle weakness (generalized) (principal) ==